=== PATIENT | male | born 1945 | race Caucasian/White ===

== ENCOUNTER 2019-10-09 13:14 | Observation (INO) | payer MEDICARE, OTHER ==
--- NOTE | 2019-10-09 13:20 | ER Document Report ---
ED Medical Screen (RME) - General Chief Complaint: S/S of Possible Stroke Stated Complaint: POSSIBLE STROKE Time Seen by Provider: 10/09/19 13:18 Mode of Arrival: Ambulatory Information source: Patient Notes: Patient is a 74-year-old male presented to the emergency department with concern for possible stroke. Patient's drove him here. Patient states that he had an episode of left-sided facial drooping at home approximately 30 minutes prior to arrival to the emergency department. He states his called EMS who came to the house and checked him out and advised that he come to the emergency department. Patient currently states all symptoms have resolved. Patient alert, oriented, answering all questions appropriately with no neurological deficits noted. I have greeted and performed a rapid initial assessment of this patient. A comprehensive ED assessment and evaluation of the patient, analysis of test results and completion of the medical decision making process will be conducted by additional ED providers. I have specifically instructed the patient or family members with the patient to immediately return to any nursing staff should anything change in the patient's condition or with their chief complaint. This medical record was dictated with voice recognizing software. There may be grammatical, syntax errors that are unintended.
--- NOTE | 2019-10-09 13:44 | RADIOLOGY REPORT (SQ) ---
EXAM DESCRIPTION: CHEST SINGLE VIEW COMPLETED DATE/TIME: 10/09/2019 1:26 pm REASON FOR STUDY: FACIAL DROOP COMPARISON: None. EXAM PARAMETERS: NUMBER OF VIEWS: One view. TECHNIQUE: Single frontal radiographic view of the chest acquired. RADIATION DOSE: NA LIMITATIONS: None. FINDINGS: LUNGS AND PLEURA: Os extensive basilar predominant course reticulonodular interstitial opa cities. No dense consolidation. No pleural effusion or pneumothorax. MEDIASTINUM AND HILAR STRUCTURES: No masses. Contour normal. HEART AND VASCULAR STRUCTURES: Normal heart size. Aortic atherosclerosis. BONES: No acute findings. HARDWARE: None in the chest. OTHER: No other significant finding. IMPRESSION: Diffuse bilateral reticulonodular interstitial opacities suggestive of a chronic interst itial lung disease. Superimposed process is not excluded. Chest CT could be considered for further characterization. TECHNICAL DOCUMENTATION: JOB ID: [id number] [employer]- All Rights Reserved Reading location - IP/workstation name: [email or web address]
--- NOTE | 2019-10-09 13:49 | RADIOLOGY REPORT (SQ) ---
EXAM DESCRIPTION: CT HEAD WITHOUT COMPLETED DATE/TIME: 10/09/2019 1:36 pm REASON FOR STUDY: FACIAL DROOP COMPARISON: None. TECHNIQUE: Axial images acquired through the brain without intravenous contrast. Images reviewed wi th bone, brain and subdural windows. Additional sagittal and coronal reconstructions were generated. Images stored on PACS. All CT scanners at this facility use dose modulation, iterative reconstruction, and/or weight based d osing when appropriate to reduce radiation dose to as low as reasonably achievable (ALARA). [facility]: Dose Right [facility]: CareDose [facility]: Dose Right [facility]: Teradose 4D [facility]: [employer] Technologies RADIATION DOSE: CT Rad equipment meets quality standard of care and radiation dose reduction techniq ues were employed. CTDIvol: 53.2 mGy. DLP: 1097 mGy-cm. mGy. LIMITATIONS: None. FINDINGS: There is diffuse, age-appropriate cerebral and cerebellar volume loss. The caliber the ve ntricles is concordant with the degree of sulcation. There is no acute intracranial hemorrhage, vasc ular territorial infarct, extra-axial fluid collection, mass effect or midline shift. There is no ef facement of the cerebral sulci or basal subarachnoid cisterns. The overton-white matter differentiation is preserved. The orbits and globes are intact. The paranasal sinuses are clear. There is no fracture of the calv arium. IMPRESSION: No acute intracranial abnormality. If there is persistent concern for an acute CVA rimma elation with MRI is recommended. EVIDENCE OF ACUTE STROKE: NO. COMMENT: Quality ID # [id number]: Final reports with documentation of one or more dose reduction techniques (e.g., Automated exposure control, adjustment of the mA and/or kV according to patient size, use of iterative reconstruction technique) TECHNICAL DOCUMENTATION: JOB ID: [id number] [employer]- All Rights Reserved Reading location - IP/workstation name: [email or web address]
[2019-10-09] MEDS ORDERED: ASPIRIN 325 MG TABLET PO ONE (14:14)
[2019-10-09 14:27] LABS: INTERNATIONAL RATION (INR) 1.13; PROTHROMBIN TIME 14.5 SEC (11.4-15.4)
[2019-10-09 14:28] LABS: ABSOLUTE BASOPHILS # (AUTO) 0.1 10^3/uL (0.0-0.2); ABSOLUTE EOSINOPHILS # (AUTO) 0.4 10^3/uL (0.0-0.6); ABSOLUTE LYMPHOCYTES (AUTO) 2.8 10^3/uL (0.5-4.7); ABSOLUTE MONOCYTES (AUTO) 0.7 10^3/uL (0.1-1.4); ABSOLUTE NEUT (AUTO) 3.8 10^3/uL (1.7-8.2); EOSINOPHILS % (AUTO) 4.9 % (0-6); HEMATOCRIT 50.9 % (37.9-51.0); HEMOGLOBIN 17.1 g/dL (13.5-17.0); LYMPHOCYTES % (AUTO) 35.8 % (13-45); MEAN CORPUSCULAR HEMOGLOBIN 31.3 pg (27.0-33.4); MEAN CORPUSCULAR HGB CONC 33.6 g/dL (32.0-36.0); MEAN CORPUSCULAR VOLUME 93 fl (80-97); MONOCYTES % (AUTO) 9.4 % (3-13); PLATELET COUNT 208 10^3/uL (150-450); RED BLOOD COUNT 5.47 10^6/uL (4.35-5.55); SEGMENTED NEUTROPHILS % (AUTO) 48.9 % (42-78); TOTAL CELLS COUNTED % (AUTO) 100 %; WHITE BLOOD COUNT 7.8 10^3/uL (4.0-10.5)
[2019-10-09 14:45] LABS: ALBUMIN 4.1 g/dL (3.5-5.0); ALKALINE PHOSPHATASE 86 U/L (38-126); ANION GAP 10 (5-19); ASPARTATE AMINO TRANSFERASE 23 U/L (17-59); BILIRUBIN,DIRECT 0.2 mg/dL (0.0-0.4); BILIRUBIN,TOTAL 0.9 mg/dL (0.2-1.3); BLOOD UREA NITROGEN 19 mg/dL (7-20); CALCIUM 8.8 mg/dL (8.4-10.2); CARBON DIOXIDE 26 mmol/L (22-30); CHLORIDE 105 mmol/L (98-107); GLUCOSE 85 mg/dL (75-110); POTASSIUM 4.8 mmol/L (3.6-5.0); TOTAL PROTEIN 7.6 g/dL (6.3-8.2)
--- NOTE | 2019-10-09 15:05 | EKG REPORT ---
SEVERITY:- ABNORMAL ECG - SINUS RHYTHM NONSPECIFIC INTRAVENTRICULAR CONDUCTION DELAY : Confirmed by: Brittny Alicea MD 09-Oct-2019 15:05:00
--- NOTE | 2019-10-09 16:16 | ER Document Report ---
ED Alteplase Inc/Exc Criteria - Date/Time patient last known well: Date/Time: 1434 - Inclusion Criteria: 1: Patient presented to ED within 3 hours of acute ischemic stroke symptom onset? -: Yes 2: Did baseline CT exclude intracranial hemorrhage and/or other risk factors? -: Yes 3: Is the age of the patient 18 years of age or greater? -: Yes : If any of the above questions are answered "NO" then stop, patient is not a candidate for Alteplase, : If all of the above questions are answered "YES" then continue with Exclusion Criteria. - Exclusion Criteria: 1: Is there evidence of intracranial hemorrhage on baseline CT? -: No 2: Is there suspicion of subarachnoid hemorrhage (even if CT negative)? -: No 3: Is there a history of serious head trauma, recent previous stroke or TN within 3 months? -: No 4: Does the patient have a clinical presentation consistent with TN or post-TN pericarditis? -: No 5: Is there history of intracranial hemorrhage? -: No 6: On repeated measurement is Systolic BP greater than 185mmHg or Diastolic BP greater that 110 mmHg and is aggressive treatment needed to reduce blood pressure to these limits (e.g. constant infusion of an anti-hypertensive)? -: No 7: Did the patient awake with stroke symptoms? -: No 8: Has the patient had a lumbar puncture or an arterial puncture at a non- compressile site within 7 days? -: No 9: With in the last 14 days did the patient have surgery or major trauma? -: No 10: Is the patient or less than 2 weeks? -: No 11: Was there any active bleeding or acute trauma? -: No 12: Does the patient have intracranial neoplasm, arteriovenous malformation or aneurysm? 13: Does the patient have abnormal glucose (less than 50 or greater than 400mg/dl)? Record glucose in Comment. -: No 14: Patient has rapidly improving symptoms at the time Alteplase is to be Administered. -: Yes 15: Does the patient have any risks for bleeding, including but not limited to: a.: Current use of Coumadin with PT greater than 15 seconds or INR greater than 1.7. b.: Current use of Pradaxa (Dabigatran). c.: Heparin administereed within the past 48 hours and PTT elevated. d.: Platelet count less than 100,000/mm. e.: Major surgery or serious trauma within 14 days. f.: Gastrointestinal or gynecological urinary bleeding within 14 days. g.: Myocardial Infarction (TN) within 3 months. -: No : If the answer to any of the above questions is "YES" then stop, the patient is not a candidate for Alteplase. : If the answer to all of the above questions is "NO" then the patient may be eligible for the Administration of Alteplase. : If the patient is noted to have seizure activity at onset of Stroke symptoms; Consult Neurologist for further evaluation. - The patient is: -: Included and is eligible to receive Alteplase. *Initiate bed placement at higher level of care* --: No Reviewed risks & benefits of thrombolytic therapy: I have reviewed the risks and benefits of thrombolytic therapy with the patient and/or his/her family. Yes -: Excluded and not eligible to receive Alteplase for the above exclusions. --: Yes - Patient's symptoms only lasted approximately 20 seconds and are gone -: Excluded and not eligible to receive Alteplase for other reasons (specify in comments): - Diagnosis of TIA: -: Patient presented with transient symptoms that are now resolved and no other neurologic findings are currently present. List symptoms in comments. -: Yes -: Patient is NOT a candidate for tPA. -: Yes -: ____(put name in comment) has been consulted for admission and continued evaluation of risk factor assessment. Comment: prem
--- NOTE | 2019-10-09 16:17 | ER Document Report ---
ED NIH Stroke Scale - NIH Stroke Scale When completed:: Before Alteplase *: 1. NIH scale should be completed with appropriate accompanying assessment tools. *: 2. The NIH should reflect what the patient is capable of doing and should not be coached by the clinician. 1a. Level of Consciousness: 0=Alert;keenly responsive -: 1=Drowsy -: 2=Obtunded -: 3=Coma/unresponsive or reflex to noxious stimuli. 1a. Responses: 0 1b. Orientation Questions: a. What month is it? -: b. How old are you? -: 0=Answers both questions correctly. -: 1=Answers one question correctly or patient is intubated or has orotracheal trauma. -: 2=Answers neither question correctly. 1b. Responses: 0 1c. Response to commands: a. Open and close eyes? -: b. 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 -: Credit is given despite weakness. Demonstration of task is permitted. Substitute command if hands cannot be used. -: 0=Performs both tasks correctly -: 1=Performs one task correctly -: 2=Performs neither task correctly 1c. Responses: 0 2. Gaze: Establish eye contact and instruct patient to "Follow my finger" -: 0=Normal -: 1=Partial gaze palsy. Gaze is abnormal in one or both eyes, but where forced deviation or total gaze paresis is not present. -: 2=Forced deviation or total gaze paresis. 2. Responses: 0 3. Visual Duenas: Sees fingers in all four quadrants. -: 0=No visual loss. -: 1=Partial hemianopsia. -: 2=Complete hemianopsia. -: 3=Bilateral hemianopsia (including Cortical blindness) 3. Responses: 0 4. Facial Movement: Instruct patient to: -: a. Show me your teeth -: b. Raise your eyebrows -: c. Close your eyes -: d. Smile -: 0=Normal symmetrical movement -: 1=Minor paralysis (flattened nasolabial fold, asymmetry on smiling). -: 2=Partial paralysis (total or near total paralysis of lower face). -: 3=Complete paralysis of upper and lower face 4. Responses: 0 5. Motor functions (left arm): Alternate sides and extend each arm with palms down (90 degrees if sitting or 45 degrees for supine). -: 0=No drift;limb holds for full 10 seconds. -: 1=Drift; limb holds but drifts down before full 10 seconds, but does not hit bed. -: 2=Some effort against gravity; limb cannot get to or maintain position. -: 3=No effort against gravity; limb falls. -: 4=No movement. -: UN=Amputation, joint fusion, explain in comments. 5. Responses (left arm): 0 5. Motor Functions (right arm): Alternate sides and extend each arm with palms down (90 degrees if sitting or 45 degrees for supine). -: 0=No drift;limb holds for full 10 seconds. -: 1=Drift; limb holds but drifts down before full 10 seconds, but does not hit bed. -: 2=Some effort against gravity; limb cannot get to or maintain position. -: 3=No effort against gravity; limb falls. -: 4=No movement. -: UN=Amputation, joint fusion, explain in comments. 5. Responses (right arm): 0 6. Motor Functions (left leg): With patient lying supine, alternate sides and extend each leg (30 degrees always while supine). -: 0=No drift, leg holds position for full 5 seconds -: 1=Drift; leg falls before full 5 seconds but does not hit bed. -: 2=Some effort against gravity, leg falls to bed but some effort against gravity. -: 3=No effort against gravity, leg falls to bed immediately. -: 4=No movement. -: UN=Amputation, joint fusion; explain in comments. 6. Responses (left leg): 0 6. Motor Functions (right leg): With patient lying supine, alternate sides and extend each leg (30 degrees always while supine). -: 0=No drift, leg holds position for full 5 seconds -: 1=Drift; leg falls before full 5 seconds but does not hit bed. -: 2=Some effort against gravity, leg falls to bed but some effort against gravity. -: 3=No effort against gravity, leg falls to bed immediately. -: 4=No movement. -: UN=Amputation, joint fusion; explain in comments. 6. Responses (right leg): 0 7. Limb Ataxia: With eyes open instruct patient to: -: a. "Touch your finger to your nose". -: b. "Touch your heel to your sanchez" -: 0=Absent -: 1=Present in one limb. -: 2=Present in two limbs. -: UN=Amputation or joint fusion; explain in comments. 7. Responses: 0 8. Sensory: Test sensation using pinprick or noxious stimuli. Test as many body parts as possible. -: 0=Normal;no sensory loss -: 1=Mile to moderate sensory loss (patient feels pin prick but is less sharp on affected side). -: 2=Severe or total sensory loss. 8. Responses: 0 9. Best Language: Instruct patient to: -: a. "Describe what you see in this picture." -: b. "Name the items in this picture." -: c. "Read these sentences." -: 0=No aphasia, normal -: 1=Mild to moderate aphasia. -: 2=Severe aphasia -: 3=Mute, global aphasia, no usable speech or auditory comprehension. 9. Responses: 0 10. Articulation, Dysarthia: Instruct patient to: -: "Read these words" or "Repeat these words" -: 0=Normal -: 1=Mild to moderate; patient may slur some words but can be understood without difficulty. -: 2=Severe; patients speech so slurred as to be unintelligible in the absence of dysphasia. -: UN=Intubated or other physical barrier, explain in comments. 10. Responses: 0 11. Extinction or inattention: 0=No abnormality -: 1= Visual, tactile, auditory, spatial, or personal inattention or extinction to bilateral simulation in one or the sensory modalities. -: 2=Profound radha-inattention or radha-inattention to more than one modality; does not recognize own hand. 11. Responses: 0 Total Score: 0
--- NOTE | 2019-10-09 16:22 | ER Document Report ---
ED Neuro Symptoms/Deficit - General Chief Complaint: S/S of Possible Stroke Stated Complaint: POSSIBLE STROKE Time Seen by Provider: 10/09/19 13:15 Mode of Arrival: Ambulatory Information source: Patient, Relative - HPI Notes: Patient presents after having trouble speaking. Patient states he does not remember having trouble speaking. However his states that he had about 12/20 period where he was trying to talk but it was unintelligible. She also states that she felt his left shoulder was slumping and that the left side of his face was drooping. He states he is now back to normal. Patient states that he feels fine and back to normal. No trouble swallowing today. No trouble with vision today. No trouble with gait. No trouble with coordination otherwise. Patient states that they were in the car all day and driving here on vacation. Patient symptoms lasted approximate 20 seconds. There is no radiation of the symptoms. Nothing made them better or worse. They were moderate. - Related Data Allergies/Adverse Reactions: No Known Allergies Allergy (Unverified 10/09/19 14:09) Past Medical History - General Information source: Patient - Social History Smoking Status: Never Smoker Chew tobacco use (# tins/day): No Frequency of alcohol use: Occasional Drug Abuse: None Family History: Reviewed & Not Pertinent Patient has suicidal ideation: No Patient has homicidal ideation: No Review of Systems - Review of Systems Constitutional: denies: Chills, Fever Cardiovascular: denies: Chest pain, Palpitations Respiratory: denies: Cough, Short of breath Gastrointestinal: denies: Abdominal pain -: Yes All other systems reviewed and negative Physical Exam - Vital signs Vitals: Temp BP Pulse Ox 97.9 F 138/89 H 85 L 10/09/19 13:36 10/09/19 13:36 10/09/19 13:36 Interpretation: Normal - General General appearance: Appears well, Alert - HEENT Head: Normocephalic, Atraumatic Eyes: Normal Pupils: PERRL - Respiratory Respiratory status: No respiratory distress Chest status: Nontender Breath sounds: Normal Chest palpation: Normal - Cardiovascular Rhythm: Regular Heart sounds: Normal auscultation Murmur: No - Abdominal Inspection: Normal Distension: No distension Bowel sounds: Normal Tenderness: Nontender Organomegaly: No organomegaly - Back Back: Normal, Nontender - Extremities General upper extremity: Normal inspection, Nontender, Normal color, Normal ROM, Normal temperature General lower extremity: Normal inspection, Nontender, Normal color, Normal ROM, Normal temperature, Normal weight bearing. No: Tanya's sign - Neurological Neuro grossly intact: Yes Cognition: Normal Orientation: AAOx4 Anurag Coma Scale Eye Opening: Spontaneous Anurag Coma Scale Verbal: Oriented [place] Coma Scale Motor: Obeys Commands [place] Coma Scale Total: 15 Speech: Normal Cranial nerves: Normal. No: Facial palsy, Gaze palsy, Tongue deviation Cerebellar coordination: Normal. 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 No: Pronator drift Sensory: Normal - Psychological Associated symptoms: Normal affect, Normal mood - Skin Skin Temperature: Warm Skin Moisture: Dry Skin Color: Normal Course - Re-evaluation Re-evalutation: 10/09/19 16:19 Patient presents with a history of TIA-like symptoms. He has no symptoms upon arrival here with a normal neurological exam. He is not a candidate for TPA due to rapidly resolving symptoms. Patient's head CT is unremarkable. He does have alpha-1 antitrypsin disorder which has been linked by certain genotypes to an increased stroke risk. He has no other significant history of vascular pathology. He does have EKG changes but there is no old EKG to compare to. He denies any previous history of cardiac pathology. He does have significant ST depression and a wide QRS at 140. It seems most prudent to have the patient admitted for further exploration of abnormal EKG as well as further work-up for vascular pathology that might have caused the TIA-like symptoms. - Vital Signs Vital signs: Temp Pulse Resp BP Pulse Ox 97.9 F 63 20 130/85 H 92 10/09/19 13:36 10/09/19 13:42 10/09/19 15:01 10/09/19 15:01 10/09/19 15:01 - Laboratory Result Diagrams: 10/09/19 13:45 10/09/19 13:45 Laboratory results interpreted by me: 10/09/19 13:45 Hgb 17.1 H RDW 15.0 H - Diagnostic Test Radiology reviewed: Image reviewed, Reports reviewed - EKG Interpretation by Me EKG shows normal: Sinus rhythm Rate: Bradycardia - 57 Rhythm: NSR [place]/QRS: IVCD Discharge - Discharge Clinical Impression: TIA (transient ischemic attack), ST segment changes on electrocardiogram Condition: Stable Disposition: ADMITTED INPATIENT Admitting Provider: Marlene (Hospitalist) Unit Admitted: Telemetry
--- NOTE | 2019-10-09 17:06 | PDOC H&P ---
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 Patient and report that he has been apparently fine until her on 12:30 PM today when he went out to get back from his car and after he came into the house, he was noted to have slurred speech and developed acute left-sided weakness. says that this only lasted for 10 seconds. Patient reports that he was unaware that it happened. He immediately returned to his baseline without any deficit, slurred speech or weakness. He denies any other acute symptoms. Denies chest pain or shortness of breath. Social History Smoking Status: Never Smoker Electronic Cigarette use?: No Family History Family History: Reviewed & Not Pertinent Parental Family History Reviewed: Yes - No premature CAD, dad from emphysema Children Family History Reviewed: No Sibling(s) Family History Reviewed.: No Medication/Allergy Allergies/Adverse Reactions: No Known Allergies Allergy (Unverified 10/09/19 14:09) Review of Systems All systems: reviewed and no additional remarkable complaints except as stated - As mentioned in HPI Physical Exam Vital Signs: Temp Pulse Resp BP Pulse Ox 97.9 F 63 22 H 130/80 H 83 L 10/09/19 13:36 10/09/19 13:42 10/09/19 16:07 10/09/19 15:45 10/09/19 16:07 Intake & Output 10/08/19 10/09/19 10/10/19 06:59 06:59 06:59 Weight 190 lb General appearance: PRESENT: no acute distress, well-developed, well-nourished Head exam: PRESENT: atraumatic, normocephalic Eye exam: PRESENT: conjunctiva pink, EOMI, PERRLA. ABSENT: scleral icterus Ear exam: PRESENT: normal external ear exam Mouth exam: PRESENT: moist, tongue midline Neck exam: ABSENT: carotid bruit, JVD, lymphadenopathy, thyromegaly Respiratory exam: PRESENT: clear to auscultation amol. ABSENT: rales, rhonchi, wheezes Cardiovascular exam: PRESENT: RRR. ABSENT: diastolic murmur, rubs, systolic murmur Pulses: PRESENT: normal dorsalis pedis pul GI/Abdominal exam: PRESENT: normal bowel sounds, soft. ABSENT: distended, guarding, mass, organolmegaly, rebound, tenderness Rectal exam: PRESENT: deferred Extremities exam: PRESENT: full ROM. ABSENT: calf tenderness, clubbing, pedal edema Neurological exam: PRESENT: alert, awake, oriented to person, oriented to place, oriented to time, oriented to situation, CN II-XII grossly intact. ABSENT: motor sensory deficit Results Laboratory Results: 10/09/19 13:45 10/09/19 13:45 10/09/19 10/09/19 13:45 13:45 WBC 7.8 RBC 5.47 Hgb 17.1 H Hct 50.9 MCV 93 MCH 31.3 MCHC 33.6 RDW 15.0 H Plt Count 208 Seg Neutrophils % 48.9 Sodium 141.3 Potassium 4.8 Chloride 105 Carbon Dioxide 26 Anion Gap 10 BUN 19 Creatinine 1.11 Est GFR ( Amer) > 60 Glucose 85 Calcium 8.8 Total Bilirubin 0.9 AST 23 Alkaline Phosphatase 86 Total Protein 7.6 Albumin 4.1 10/09/19 10/09/19 13:45 13:45 Creatine Kinase Cancelled CK-MB (CK-2) Cancelled Troponin I 0.019 Impressions: Chest X-Ray 10/09/19 13:19 IMPRESSION: Diffuse bilateral reticulonodular interstitial opacities suggestive of a chronic interstitial lung disease. Superimposed process is not excluded. Chest CT could be considered for further characterization. Head CT 10/09/19 13:19 IMPRESSION: No acute intracranial abnormality. If there is persistent concern for an acute CVA correlation with MRI is recommended. EVIDENCE OF ACUTE STROKE: NO. Assessment and Plan - Diagnosis (1) TIA (transient ischemic attack) Is this a current diagnosis for this admission?: Yes Plan: Patient had a transient slurred speech and acute left-sided weakness. Neurologic examination is completely normal upon encounter. CT of the head was unremarkable. Will admit for TIA work-up. Will order a carotid Doppler and will also check a lipid panel. Telemetry overnight. (2) ST segment changes on electrocardiogram Is this a current diagnosis for this admission?: Yes Plan: He denies chest pain or shortness of breath. Will request records from his PCP in [place] to compare from previous EKGs. (3) Interstitial lung disease Is this a current diagnosis for this admission?: Yes Plan: He was following up with a search coordinator in [place] regarding his chronic lung disease related to his alpha-1 antitrypsin deficiency. He is not on home O2. (4) [id number] deficiency Is this a current diagnosis for this admission?: Yes - Time Time Spent with patient: 25-34 minutes
--- NOTE | 2019-10-09 17:18 | ADVANCED CARE ---
- Diagnosis (1) TIA (transient ischemic attack) Diagnosis Current: Yes (2) Wchbw-2-yffytmmvtho deficiency Diagnosis Current: Yes (3) Interstitial lung disease Diagnosis Current: Yes (4) ST segment changes on electrocardiogram Diagnosis Current: Yes Resuscitation Status: Full Code Discussion: Discussed with patient and on bedside. Patient says that he wants us to attempt resuscitation but is specific about only attempting it once. He says that he does not want to be subjected to multiple resuscitation attempts. He says that he also does not want to be on long-term ventilation. He says that his , Melody Bernard (same name with patient) is his surrogate medical decision maker.
[2019-10-09 17:50] LABS: CHOLESTEROL 127.99 mg/dL (0-200); TRIGLYCERIDES 124 mg/dL (<150)
[2019-10-09 18:01] LABS: DIRECT LDL 59 mg/dL (<100)
[2019-10-09] MEDS ORDERED: INFLUENZA QUAD (6MOS+) 2019-20 VAC 0.5 ML SYR IM ONE (18:52)
[2019-10-09] MEDS: HEPARIN SOD (PORCINE) 5,000 UNIT/ML 1 ML VIAL SUBCUT SCH (21:51)
[2019-10-09] MEDS ORDERED: CIPROFLOXACIN HCL 0.3% OPH SOLN 2.5 ML OU SCH (22:00)
[2019-10-09] MEDS ORDERED: ATORVASTATIN CALCIUM 40 MG TABLET PO SCH (22:00)
--- NOTE | 2019-10-10 01:21 | RADIOLOGY REPORT (SQ) ---
EXAM DESCRIPTION: [facility]Lex: US CAROTID DOPPLER BILATERAL CLINICAL HISTORY: 74 years Male; TIA TECHNIQUE: Grayscale and Doppler (color and pulse) ultrasound of bilateral carotid arteries and the vertebral arteries was performed. Stenosis assessment based on Carotid Artery Stenosis: Posada-Scale and Doppler US DiagnosisSociety of Radiologists in Ultrasound Consensus Conference; Radiology, Sep 2003, Vol. 229:340-346 COMPARISON: None. FINDINGS: All velocities in cm/sec. Right carotid: Morphology: No calcific plaque ICA velocities: Proximal 50/11, distal 74/24 (Normal < 124/40) CCA PSV: Proximal 97, distal 85 ICA/CCA PSV ratio: 0.9 (Normal < 2.0) ECA: Patent, PSV 67 Left carotid: Morphology: No calcific plaque. ICA velocities: Proximal 61/13, distal 63/20 (Normal < 124/40) CCA PSV: Proximal 107, distal 79 ICA/CCA PSV ratio: 0.8 (Normal < 2.0) ECA: Patent, PSV 79 Right vertebral: Antegrade flow Left vertebral: Antegrade flow IMPRESSION: 1. No significant stenosis of the cervical carotid arteries. 2. Normal antegrade flow in both vertebral arteries
[2019-10-10] MEDS: HEPARIN SOD (PORCINE) 5,000 UNIT/ML 1 ML VIAL SUBCUT SCH (05:18)
[2019-10-10 07:39] VITALS: BP 114/69
[2019-10-10] MEDS ORDERED: ASPIRIN 81 MG TABLET, ENT COATED PO SCH (10:00)
--- NOTE | 2019-10-10 12:10 | PDOC DISCHARGE SUMMARY ---
Impression - Admit/DC Date/PCP Admission Date/Primary Care Provider: 10/09/19 16:32 Discharge Date: 10/10/19 - Assessment Summary: This is a 74-year-old male patient with a past medical history of alpha-1 antitrypsin deficiency with chronic interstitial lung disease who had acute onset symptoms of TIA including slurred speech and acute left-sided weakness. By the time he presented to the emergency department it had resolved. - Additional Information Resuscitation Status: Full Code Discharge Diet: Cardiac Discharge Activity: Activity As Tolerated Referrals: DEDRICK NIXON MD [ACTIVE STAFF] - 10/25/19 2:15 pm (New patient appointment.) Prescriptions: Atorvastatin Calcium [Lipitor 20 mg Tablet] 20 mg PO QHS #30 tablet Home Medications: Albuterol Sulfate [Proair HFA Inhalation Aerosol 8.5 gm MDI] 2 puff IH QIDP PRN 10/09/19 Tiotropium [place] [Spiriva Respimat] 1 puff IH DAILY 10/09/19 Aspirin [Ecotrin 81 mg EC Tablet] 81 mg PO DAILY tabec 10/10/19 Atorvastatin Calcium [Lipitor 20 mg Tablet] 20 mg PO QHS #30 tablet 10/10/19 History of Present Illiness History of Present Illness: LUAN MOHAMUD is a 74 year old male on an extended visit from [place] who just arrived in the area 2 days ago. His past medical history is significant for alpha-1 antitrypsin deficiency with associated chronic interstitial lung disease. The patient had been in his normal state of health until approximately 12:30 PM on the day of admission. The patient went out to his car briefly and when he came back in the house he had slurred speech and acute left-sided weakness. The patient and his agree that the symptoms were gone but then a minute. The patient's reports that the patient was unaware of the event altogether. He returned to baseline but they presented to the emergency department for evaluation. At the time of admission he had no acute focal neurologic symptoms, no chest pain, no shortness of breath and was referred to the hospital service for admission. Hospital Course Hospital Course: The patient had an unremarkable hospital course. Further diagnostic imaging and blood work were unremarkable. His neurologic symptoms had resolved prior to arriving at the emergency department. His blood pressure and lipids were well controlled. He will be discharged and a follow-up appointment has been set up with a local physician since he is visiting from [place]. In addition, he does use the [place] [facility] and I suggested that they try to make arrangements for follow-up especially considering new medication. Physical Exam Vital Signs: Temp Pulse Resp BP Pulse Ox 98.0 F 51 L 18 114/69 96 10/10/19 07:35 10/10/19 11:00 10/10/19 11:00 10/10/19 11:00 10/10/19 11:00 Intake & Output 10/09/19 10/10/19 10/11/19 06:59 06:59 06:59 Intake Total 600 Output Total 3 Balance 597 Weight 84.8 kg General appearance: PRESENT: no acute distress, cooperative, well-developed Head exam: PRESENT: atraumatic, normocephalic Eye exam: PRESENT: conjunctiva pink. ABSENT: scleral icterus Ear exam: PRESENT: normal external ear exam. ABSENT: bleeding, drainage Respiratory exam: PRESENT: rales - fine rales bilaterally, stridor, unlabored. ABSENT: rhonchi, tachypnea, wheezes Cardiovascular exam: PRESENT: RRR, +S1, +S2 GI/Abdominal exam: PRESENT: normal bowel sounds, soft. ABSENT: distended, tenderness Rectal exam: PRESENT: deferred Extremities exam: PRESENT: full ROM. ABSENT: joint swelling, pedal edema Musculoskeletal exam: PRESENT: normal inspection. ABSENT: deformity Neurological exam: PRESENT: alert, awake, oriented to person, oriented to place, oriented to time, oriented to situation, CN II-XII grossly intact. ABSENT: motor sensory deficit Psychiatric exam: PRESENT: appropriate affect, normal mood. ABSENT: agitated, anxious Focused psych exam: ABSENT: delusional, restlessness Skin exam: PRESENT: dry, warm. ABSENT: rash Results Laboratory Results: WBC 7.8 10^3/uL (4.0-10.5) 10/09/19 13:45 RBC 5.47 10^6/uL (4.35-5.55) 10/09/19 13:45 Hgb 17.1 g/dL (13.5-17.0) H 10/09/19 13:45 Hct 50.9 % (37.9-51.0) 10/09/19 13:45 MCV 93 fl (80-97) 10/09/19 13:45 MCH 31.3 pg (27.0-33.4) 10/09/19 13:45 MCHC 33.6 g/dL (32.0-36.0) 10/09/19 13:45 RDW 15.0 % (11.5-14.0) H 10/09/19 13:45 Plt Count 208 10^3/uL (150-450) 10/09/19 13:45 Lymph % (Auto) 35.8 % (13-45) 10/09/19 13:45 [place] % (Auto) 9.4 % (3-13) 10/09/19 13:45 Eos % (Auto) 4.9 % (0-6) 10/09/19 13:45 Baso % (Auto) 1.0 % (0-2) 10/09/19 13:45 Absolute Neuts (auto) 3.8 10^3/uL (1.7-8.2) 10/09/19 13:45 Absolute Lymphs (auto) 2.8 10^3/uL (0.5-4.7) 10/09/19 13:45 Absolute Monos (auto) 0.7 10^3/uL (0.1-1.4) 10/09/19 13:45 Absolute Eos (auto) 0.4 10^3/uL (0.0-0.6) 10/09/19 13:45 Absolute Basos (auto) 0.1 10^3/uL (0.0-0.2) 10/09/19 13:45 Seg Neutrophils % 48.9 % (42-78) 10/09/19 13:45 PT 14.5 SEC (11.4-15.4) 10/09/19 13:45 INR 1.13 10/09/19 13:45 APTT Cancelled 10/09/19 13:45 Sodium 141.3 mmol/L (137-145) 10/09/19 13:45 Potassium 4.8 mmol/L (3.6-5.0) 10/09/19 13:45 Chloride 105 mmol/L (98-107) 10/09/19 13:45 Carbon Dioxide 26 mmol/L (22-30) 10/09/19 13:45 Anion Gap 10 (5-19) 10/09/19 13:45 BUN 19 mg/dL (7-20) 10/09/19 13:45 Creatinine 1.11 mg/dL (0.52-1.25) 10/09/19 13:45 Est GFR ( Amer) > 60 (>60) 10/09/19 13:45 Est GFR (MDRD) Non-Af > 60 (>60) 10/09/19 13:45 Glucose 85 mg/dL (75-110) 10/09/19 13:45 Calcium 8.8 mg/dL (8.4-10.2) 10/09/19 13:45 Total Bilirubin 0.9 mg/dL (0.2-1.3) 10/09/19 13:45 Direct Bilirubin 0.2 mg/dL (0.0-0.4) 10/09/19 13:45 Neonat Total Bilirubin Not Reportable 10/09/19 13:45 Neonat Direct Bilirubin Not Reportable 10/09/19 13:45 Neonat Indirect Bili Not Reportable 10/09/19 13:45 AST 23 U/L (17-59) 10/09/19 13:45 ALT 17 U/L (<50) 10/09/19 13:45 Alkaline Phosphatase 86 U/L (38-126) 10/09/19 13:45 Creatine Kinase Cancelled 10/09/19 13:45 CK-MB (CK-2) Cancelled 10/09/19 13:45 Troponin I 0.019 ng/mL 10/09/19 13:45 Total Protein 7.6 g/dL (6.3-8.2) 10/09/19 13:45 Albumin 4.1 g/dL (3.5-5.0) 10/09/19 13:45 Triglycerides 124 mg/dL (<150) 10/09/19 13:45 Cholesterol 127.99 mg/dL (0-200) 10/09/19 13:45 LDL Cholesterol Direct 59 mg/dL (<100) 10/09/19 13:45 VLDL Cholesterol 25.0 mg/dL (10-31) 10/09/19 13:45 HDL Cholesterol 46 mg/dL (>40) 10/09/19 13:45 10/09/19 13:45 CK-MB (CK-2) Cancelled Troponin I 0.019 Impressions: Carotid Doppler Study 10/09/19 00:00 IMPRESSION: 1. No significant stenosis of the cervical carotid arteries. 2. Normal antegrade flow in both vertebral arteries Chest X-Ray 10/09/19 13:19 IMPRESSION: Diffuse bilateral reticulonodular interstitial opacities suggestive of a chronic interstitial lung disease. Superimposed process is not excluded. Chest CT could be considered for further characterization. Head CT 10/09/19 13:19 IMPRESSION: No acute intracranial abnormality. If there is persistent concern for an acute CVA correlation with MRI is recommended. EVIDENCE OF ACUTE STROKE: NO. Plan Health Concerns: The major concern that we discussed was the possibility of recurrent TIA or stroke. He does have an abnormal EKG but we are unable to obtain records from his primary care in [place]. He was completely asymptomatic. Plan of Treatment: The patient currently is on inhaler therapy for his alpha-1 antitrypsin deficiency with pulmonary fibrosis. I explained that he should add aspirin therapy daily. I suggested 81 mg enteric-coated aspirin. His takes one half of an adult strength aspirin and asked if that would be okay. I certainly encouraged either dose. In addition the patient's lipid profile was quite good however I explained to the patient that the addition of a statin to his regimen should help decrease the progression of any atherosclerosis. This will be used in a preventive capacity as opposed to an acute treatment for hypercholesterolemia. The patient was agreeable to the treatment plan. Goals: To reduce the risk of recurrent event. He will also need to follow-up with his primary care provider in [place] when he gets home. Stroke Is this a Stroke Patient?: Yes Stroke Pt being discharged on Anti-thrombolytic therapy?: Yes Stroke Pt being discharged on Anti-coagulation therapy?: No Reason(s) for not prescribing Anti-coagulation therapy:: Not indicated Stroke Pt being discharged on Statins?: Yes Acute Heart Failure - Is this a Heart Failure Patient?: No
== END 2019-10-10 13:34 | disposition home or self-care (01) ==
LOC: ER 13:14 → INTOOBSV 16:32 → EH 16:32 → 3N 18:39
PROVIDERS: ADMIT Internal Medicine; ATTEND Internal Medicine
DX: G45.9 Transient cerebral ischemic attack, unspecified (principal); R94.31 Abnormal electrocardiogram [ECG] [EKG]; E88.01 Alpha-1-antitrypsin deficiency; J84.89 Other specified interstitial pulmonary diseases; Z23 Encounter for immunization
CPT/HCPCS: 93005; 99285; 36415; 85025; 85610; 80053; 84484; 80061; 93880; 71045; 70450; 90686; 93010; G0378 ×3; G0008; A9270 ×2; J1644 ×2; 90471; J3490

== ENCOUNTER → 2020-01-09 | Outpatient (CLI) | payer MEDICARE, OTHER ==
--- NOTE | 2020-01-09 14:14 | RADIOLOGY REPORT (SQ) ---
EXAM DESCRIPTION: CHEST PA/LATERAL COMPLETED DATE/TIME: 01/09/2020 1:55 pm REASON FOR STUDY: [id number] DEFICIENCY COMPARISON: 10/09/2019. EXAM PARAMETERS: NUMBER OF VIEWS: two views TECHNIQUE: Digital Frontal and Lateral radiographic views of the chest acquired. RADIATION DOSE: NA LIMITATIONS: none FINDINGS: LUNGS AND PLEURA: Chronic fibrotic changes. No infiltrates, masses or pneumothorax. No pl eural effusion. MEDIASTINUM AND HILAR STRUCTURES: No masses or contour abnormalities. HEART AND VASCULAR STRUCTURES: Heart normal size. No evidence for failure. BONES: No acute findings. HARDWARE: None in the chest. OTHER: No other significant finding. IMPRESSION: CHRONIC FIBROTIC CHANGES. NO ACUTE RADIOGRAPHIC FINDING IN THE CHEST. TECHNICAL DOCUMENTATION: JOB ID: [id number] 2010 [employer]- All Rights Reserved Reading location - IP/workstation name: [email or web address]
[2020-01-09 14:18] LABS: ABSOLUTE BASOPHILS # (AUTO) 0.1 10^3/uL (0.0-0.2); ABSOLUTE EOSINOPHILS # (AUTO) 0.2 10^3/uL (0.0-0.6); ABSOLUTE LYMPHOCYTES (AUTO) 2.9 10^3/uL (0.5-4.7); ABSOLUTE MONOCYTES (AUTO) 1.1 10^3/uL (0.1-1.4); ABSOLUTE NEUT (AUTO) 9.4 10^3/uL (1.7-8.2); BASOPHILS % (AUTO) 0.7 % (0-2); EOSINOPHILS % (AUTO) 1.5 % (0-6); HEMATOCRIT 45.9 % (37.9-51.0); HEMOGLOBIN 15.8 g/dL (13.5-17.0); LYMPHOCYTES % (AUTO) 21.1 % (13-45); MEAN CORPUSCULAR HEMOGLOBIN 31.8 pg (27.0-33.4); MEAN CORPUSCULAR HGB CONC 34.3 g/dL (32.0-36.0); MEAN CORPUSCULAR VOLUME 93 fl (80-97); MONOCYTES % (AUTO) 8.3 % (3-13); PLATELET COUNT 265 10^3/uL (150-450); RED BLOOD COUNT 4.96 10^6/uL (4.35-5.55); RED CELL DISTRIBUTION WIDTH 15.6 % (11.5-14.0); SEGMENTED NEUTROPHILS % (AUTO) 68.4 % (42-78); TOTAL CELLS COUNTED % (AUTO) 100 %; WHITE BLOOD COUNT 13.7 10^3/uL (4.0-10.5)
[2020-01-12 07:07] LABS: ALPHA-1-ANTITRYPSIN PHENOTYPE SZ (.)
== END ==
LOC: OD 13:35
PROVIDERS: ATTEND Internal Medicine Pulmonary Disease
DX: J20.9 Acute bronchitis, unspecified (principal); E88.01 Alpha-1-antitrypsin deficiency
CPT/HCPCS: 36415; 71046; 81332; 82103; 82104; 82784; 85025

== ENCOUNTER 2020-02-12 11:01 | Inpatient (IN) | payer MEDICARE, OTHER ==
[2020-02-12] MEDS ORDERED: ACETAMINOPHEN 325 MG TABLET PO ONE (11:33)
[2020-02-12 12:06] LABS: ABSOLUTE BASOPHILS # (AUTO) 0.1 10^3/uL (0.0-0.2); ABSOLUTE LYMPHOCYTES (AUTO) 1.7 10^3/uL (0.5-4.7); ABSOLUTE MONOCYTES (AUTO) 1.5 10^3/uL (0.1-1.4); ABSOLUTE NEUT (AUTO) 10.6 10^3/uL (1.7-8.2); BASOPHILS % (AUTO) 0.5 % (0-2); EOSINOPHILS % (AUTO) 0.4 % (0-6); HEMATOCRIT 47.4 % (37.9-51.0); LYMPHOCYTES % (AUTO) 12.2 % (13-45); MEAN CORPUSCULAR HEMOGLOBIN 30.8 pg (27.0-33.4); MEAN CORPUSCULAR HGB CONC 33.7 g/dL (32.0-36.0); MEAN CORPUSCULAR VOLUME 91 fl (80-97); MONOCYTES % (AUTO) 10.9 % (3-13); PLATELET COUNT 292 10^3/uL (150-450); RED BLOOD COUNT 5.19 10^6/uL (4.35-5.55); RED CELL DISTRIBUTION WIDTH 14.3 % (11.5-14.0); TOTAL CELLS COUNTED % (AUTO) 100 %
[2020-02-12 12:12] LABS: INTERNATIONAL RATION (INR) 1.24; PROTHROMBIN TIME 15.7 SEC (11.4-15.4)
[2020-02-12 12:19] LABS: VENOUS BLOOD BASE EXCESS 0.4 mmol/L; VENOUS BLOOD HCO3 24.7 mmol/L (20-32); VENOUS BLOOD PCO2 38.7 mmHg (35-63); VENOUS BLOOD PH 7.42 (7.30-7.42)
[2020-02-12 12:31] LABS: ALBUMIN 3.6 g/dL (3.5-5.0); ALKALINE PHOSPHATASE 154 U/L (38-126); ANION GAP 11 (5-19); ASPARTATE AMINO TRANSFERASE 28 U/L (17-59); BILIRUBIN,DIRECT 0.2 mg/dL (0.0-0.4); BILIRUBIN,TOTAL 1.7 mg/dL (0.2-1.3); BLOOD UREA NITROGEN 22 mg/dL (7-20); CALCIUM 8.4 mg/dL (8.4-10.2); CARBON DIOXIDE 21 mmol/L (22-30); CHLORIDE 100 mmol/L (98-107); GLUCOSE 112 mg/dL (75-110); POTASSIUM 4.8 mmol/L (3.6-5.0); TOTAL PROTEIN 7.4 g/dL (6.3-8.2)
--- NOTE | 2020-02-12 12:32 | ER Document Report ---
ED General - General Chief Complaint: Shortness Of Breath Stated Complaint: SHORTNESS OF BREATH Time Seen by Provider: 02/12/20 11:31 Notes: 74-year-old male sent in from Dr. [facility] pulmonary clinic for hypoxia. Patient states he was diagnosed with bronchitis 2 weeks ago, took a Z-Venkatesh and is still has not been feeling well since then. States that normally he uses oxygen at night only but for the past 2 weeks has been having to use 4 L via nasal cannula every day even during the day. At the pulmonary clinic he was found to be febrile and hypoxic, they started him on 10 L via nasal cannula at the clinic and sent him here via EMS. Patient admits to chills yesterday, shortness of breath, cough that is slightly productive of sputum. Denies chest pain, nausea, vomiting, diarrhea. TRAVEL OUTSIDE OF THE [place] IN LAST 30 DAYS: No - Related Data Allergies/Adverse Reactions: No Known Allergies Allergy (Verified 02/12/20 11:14) Past Medical History - General Information source: Patient - Social History Smoking Status: Former Smoker - Smoked only for 2 weeks, has a history of alpha- 1 antitrypsin deficiency. Chew tobacco use (# tins/day): No Frequency of alcohol use: Occasional Drug Abuse: None Family History: Reviewed & Not Pertinent, COPD - Father, Other - Mom with CHF Patient has suicidal ideation: No Patient has homicidal ideation: No - Past Medical History Cardiac Medical History: Reports: Hx Hypercholesterolemia Pulmonary Medical History: Reports: Hx Asthma, Hx COPD Psychiatric Medical History: Denies: Hx Depression Review of Systems - Review of Systems Constitutional: See HPI, Chills. denies: Diaphoresis, Weakness EENT: No symptoms reported Cardiovascular: No symptoms reported. denies: Chest pain, Palpitations, Heart racing Respiratory: See HPI, Cough, Short of breath Gastrointestinal: No symptoms reported -: Yes All other systems reviewed and negative Physical Exam - Vital signs Vitals: Pulse Ox 87 L 02/12/20 11:01 Interpretation: Hypoxic, Febrile - Notes Notes: GENERAL: Alert, interacts well. No acute distress. HEAD: Normocephalic, atraumatic EYES: Pupils equal, round and reactive to light, extraocular movements intact. ENT: Oral mucosa moist, tongue midline. NECK: Full range of motion, supple, trachea midline. LUNGS: Diffuse inspiratory rales throughout the entire lung zones, tachypneic, moderately short of breath, no wheezing. HEART: Regular rate and rhythm, no murmurs, gallops, rubs. ABDOMEN: Soft, nontender, nondistended, bowel sounds present in all 4 quadrants. EXTREMITIES: Moves all 4 extremities spontaneously, no edema, radial and dorsalis pedis pulses 2/4 bilaterally. No cyanosis. NEUROLOGICAL: Alert and oriented x3, normal speech. PSYCH: Normal mood, normal affect. SKIN: Warm, Dry, normal turgor, no rashes or lesions noted. Course - Re-evaluation Re-evalutation: 02/12/20 15:06 CBC shows leukocytosis at 14, INR slightly prolonged, venous blood gas unremarkable, CMP shows slight low sodium at 132.4, CO2 low at 21, BUN elevated at 22, lactic acid normal, troponin detectable but negative at 0.020, proBNP elevated at 1720, urinalysis does have some evidence of dehydration with specific gravity of 1.029. Flu a and B swabs are negative. 02/12/20 15:06 Chest X-Ray 02/12/20 11:33 IMPRESSION: Pulmonary fibrosis. Cannot exclude a superimposed left lower lobe pneumonia. Patient started on Rocephin and azithromycin as he is febrile and has a leukocytosis, lung sounds are concerning for pulmonary edema however similar sounds can be heard in pulmonary fibrosis. Patient does have an elevated proBNP, given Lasix IV, started on BiPAP, oxygenation has improved. Patient is actually somewhat claustrophobic and uncomfortable on the BiPAP. It has been on for over an hour. We will trial him off of the BiPAP and on 4 L via nasal cannula. If he does well I will call to discuss with the hospitalist for admission. 02/12/20 16:03 Patient is now actually 97% on 4 L via nasal cannula, does desaturate to 88% when standing up to urinate. He was able to be taken off BiPAP without difficulty when at rest. Discussed the case with on way, agrees to admit the patient to his service on telemetry care unit. - Vital Signs Vital signs: Temp Pulse Resp BP Pulse Ox 99.2 F 22 H 74/52 L 97 02/12/20 13:07 02/12/20 14:41 02/12/20 14:41 02/12/20 14:41 - Laboratory Result Diagrams: 02/12/20 10:46 02/12/20 10:46 Laboratory results interpreted by me: 02/12/20 02/12/20 02/12/20 10:46 10:46 10:46 WBC 14.0 H RDW 14.3 H Lymph % (Auto) 12.2 L Absolute Neuts (auto) 10.6 H Absolute Monos (auto) 1.5 H PT 15.7 H Sodium 132.4 L Carbon Dioxide 21 L BUN 22 H Glucose 112 H Total Bilirubin 1.7 H Alkaline Phosphatase 154 H NT-Pro-B Natriuret Pep Urine Protein Urine Urobilinogen 02/12/20 02/12/20 12:00 13:11 WBC RDW Lymph % (Auto) Absolute Neuts (auto) Absolute Monos (auto) PT Sodium Carbon Dioxide BUN Glucose Total Bilirubin Alkaline Phosphatase NT-Pro-B Natriuret Pep 1720 H Urine Protein 30 H Urine Urobilinogen 4.0 H - EKG Interpretation by Me Additional EKG results interpreted by me: 02/12/20 12:35 EKG shows sinus rhythm at a rate of 94, right bundle branch block, left posterior fascicular block, no ST segment elevations, ST segment depressions are noted in V2, V3 although this may be due to a poor baseline, T wave inversions in V2 through V4 as well as expected T wave inversions in 2, 3, aVF, most of this is unchanged from prior EKG on 10/09/2019, only new thing is the ST segment depression in V2 and V3 per my interpretation. Critical Care Note - Critical Care Note Total time excluding time spent on procedures (mins): 35 Discharge - Discharge Clinical Impression: Hypoxia, Ilgiv-2-vgaunzgjptu deficiency, Pulmonary fibrosis Left lower lobe pneumonia Qualifiers: Pneumonia type: due to unspecified organism Qualified Code(s): J18.9 - Pneumonia, unspecified organism Pulmonary edema Qualifiers: Chronicity: acute Qualified Code(s): J81.0 - Acute pulmonary edema Condition: Fair Disposition: ADMITTED INPATIENT Admitting Provider: [place] (Hospitalist) Unit Admitted: Telemetry
[2020-02-12] MEDS ORDERED: LORAZEPAM INJ 2 MG/1 ML VIAL IV ONE ×2 (12:39→13:31)
[2020-02-12 12:44] LABS: A TYPE INFLUENZA AG NEGATIVE (NEGATIVE); B INFLUENZA AG NEGATIVE (NEGATIVE)
--- NOTE | 2020-02-12 12:54 | RADIOLOGY REPORT (SQ) ---
EXAM DESCRIPTION: CHEST SINGLE VIEW COMPLETED DATE/TIME: 02/12/2020 12:13 pm REASON FOR STUDY: fever, cough, SOB COMPARISON: 01/09/2020 EXAM PARAMETERS: NUMBER OF VIEWS: One view. TECHNIQUE: Single frontal radiographic view of the chest acquired. RADIATION DOSE: NA LIMITATIONS: None. FINDINGS: LUNGS AND PLEURA: Chronic pulmonary fibrosis most prominent in the left base. There is sl ightly increased opacification in the left base compared to the earlier study. MEDIASTINUM AND HILAR STRUCTURES: No masses. Contour normal. HEART AND VASCULAR STRUCTURES: Heart normal in size. Normal vasculature. BONES: No acute findings. HARDWARE: None in the chest. OTHER: No other significant finding. IMPRESSION: Pulmonary fibrosis. Cannot exclude a superimposed left lower lobe pneumonia. TECHNICAL DOCUMENTATION: JOB ID: [id number] 2010 [employer]- All Rights Reserved Reading location - IP/workstation name: [email or web address]
[2020-02-12] MEDS ORDERED: AZITHROMYCIN INJ 500 MG VIAL IV ONE (13:30)
[2020-02-12] MEDS ORDERED: FUROSEMIDE INJ/PF 40 MG/4 ML SDV IV ONE (13:30)
[2020-02-12] MEDS ORDERED: CEFTRIAXONE 1 GM/D5W RTU 1 GM/50 ML RTUPB IV ONE (13:30)
[2020-02-12 13:31] LABS: APPEARANCE,URINE SLIGHTLY-CLOUDY; BILIRUBIN,URINE NEGATIVE (NEGATIVE); COLOR,URINE AMBER; GLUCOSE, URINE NEGATIVE (NEGATIVE); KETONES,URINE NEGATIVE (NEGATIVE); PROTEIN,URINE 30 mg/dL (NEGATIVE); URINE SPECIFIC GRAVITY 1.029
--- NOTE | 2020-02-12 15:38 | EKG REPORT ---
SEVERITY:- ABNORMAL ECG - SINUS RHYTHM RBBB AND LPFB ST DEPRESSION, CONSIDER ISCHEMIA, INF LEADS : Confirmed by: Brittny Alicea MD 12-Feb-2020 15:37:34
[2020-02-12] MEDS ORDERED: MAG HYDROX/AL HYDROX/SIMETH SUSP 30 ML UDCUP PO PRN (17:43)
[2020-02-12] MEDS ORDERED: ONDANSETRON HCL INJ/PF 4 MG/2 ML SDV IV PRN (17:43)
--- NOTE | 2020-02-12 17:56 | PDOC H&P ---
History of Present Illness Admission Date/PCP: 02/12/20 16:16 Patient complains of: sob History of Present Illness: LUAN MOHAMUD is a 74 year old male with a history of Alpha 1 antitrypsn deficiency, COPD and likely pulmonary fibrosis on 4 L nasal cannula, TIA, who presents from Dr. Sharp's office with complaints of shortness of breath. Patient went to Dr. Sharp's office today and was noted to be hypoxic with SPO2 in the 70s on 4 L. Patient was placed on 10 L nasal cannula and transferred to the ER for further evaluation. In the ER, patient was noted to be febrile at 100.6 and given Tylenol. Chest x-ray revealed chronic interstitial changes but with increased interstitial opacities in the left lower lung. Patient relocated from [place] 3 months ago. Has not had any recent travels outside the country. No known exposures to any persons with covid 19. Only known sick contact is his grandchild who he frequently picks up from the daycare. Has interacted with relatives from out of state recently. Patient states that he was started on treatment for acute bronchitis by Dr. Sharp about 2 weeks ago without any significant improvement continues to feel short of breath and experiencing cough. Endorses some chills but did not know he was febrile. Past Medical History Cardiac Medical History: Reports: Hyperlipidema Pulmonary Medical History: Reports: Asthma, Chronic Obstructive Pulmonary Disease (COPD), Other - pulmonary fibrosis Psychiatric Medical History: Denies: Depression Social History Smoking Status: Former Smoker - Smoked only for 2 weeks, has a history of alpha- 1 antitrypsin deficiency. Electronic Cigarette use?: No Frequency of Alcohol Use: Occasional Hx Recreational Drug Use: No Drugs: None Hx Prescription Drug Abuse: No - Advance Directive Resuscitation Status: Full Code Family History Family History: COPD - Father, Other - Mom with CHF Parental Family History Reviewed: Yes Children Family History Reviewed: NA Sibling(s) Family History Reviewed.: NA Medication/Allergy Home Medications: Tiotropium [place] [Spiriva Respimat] 1 puff IH DAILY 10/09/19 Aspirin [Ecotrin 81 mg EC Tablet] 81 mg PO DAILY tabec 10/10/19 Atorvastatin Calcium [Lipitor 20 mg Tablet] 20 mg PO QHS #30 tablet 10/10/19 Allergies/Adverse Reactions: No Known Allergies Allergy (Verified 02/12/20 11:14) Review of Systems Constitutional: PRESENT: chills, fever(s) Nose, Mouth, and Throat: ABSENT: mouth pain, sore throat Cardiovascular: ABSENT: chest pain, orthropnea Respiratory: PRESENT: cough, dyspnea, sputum Gastrointestinal: ABSENT: nausea, vomiting Integumentary: ABSENT: diaphoresis Neurological: ABSENT: confusion, dizziness Psychiatric: ABSENT: anxiety Endocrine: ABSENT: polyuria Hematologic/Lymphatic: ABSENT: lymphadenopathy Physical Exam Vital Signs: Temp Pulse Resp BP Pulse Ox 99.2 F 22 H 74/52 L 97 02/12/20 13:07 02/12/20 14:41 02/12/20 14:41 02/12/20 14:41 Intake & Output 02/11/20 02/12/20 02/13/20 06:59 06:59 06:59 Intake Total 50 Output Total 230 Balance -180 Weight 77.6 kg General appearance: PRESENT: no acute distress, cooperative Neck exam: ABSENT: JVD Respiratory exam: PRESENT: crackles, symmetrical. ABSENT: tachypnea, unlabored, wheezes Cardiovascular exam: PRESENT: RRR, +S1, +S2. ABSENT: tachycardia GI/Abdominal exam: PRESENT: soft. ABSENT: rigid, tenderness Extremities exam: ABSENT: calf tenderness, pedal edema Musculoskeletal exam: PRESENT: ambulatory Neurological exam: PRESENT: alert, awake, oriented to person, oriented to place, oriented to time Psychiatric exam: ABSENT: agitated, anxious Skin exam: ABSENT: cyanosis Results Laboratory Results: 02/12/20 10:46 02/12/20 10:46 02/12/20 02/12/20 02/12/20 10:46 10:46 11:54 WBC 14.0 H RBC 5.19 Hgb 16.0 Hct 47.4 MCV 91 MCH 30.8 MCHC 33.7 RDW 14.3 H Plt Count 292 Seg Neutrophils % 76.0 VBG pH 7.42 VBG pCO2 38.7 VBG HCO3 24.7 VBG Base Excess 0.4 Sodium 132.4 L Potassium 4.8 Chloride 100 Carbon Dioxide 21 L Anion Gap 11 BUN 22 H Creatinine 1.00 Est GFR ( Amer) > 60 Glucose 112 H Lactic Acid Calcium 8.4 Total Bilirubin 1.7 H AST 28 Alkaline Phosphatase 154 H Total Protein 7.4 Albumin 3.6 Urine Color Urine Appearance Urine pH Ur Specific [place] Urine Protein Urine Glucose (UA) Urine Ketones Urine Blood Urine RBC (Auto) 02/12/20 02/12/20 02/12/20 11:54 13:11 15:10 WBC RBC Hgb Hct MCV MCH MCHC RDW Plt Count Seg Neutrophils % VBG pH VBG pCO2 VBG HCO3 VBG Base Excess Sodium Potassium Chloride Carbon Dioxide Anion Gap BUN Creatinine Est GFR ( Amer) Glucose Lactic Acid 1.8 1.5 Calcium Total Bilirubin AST Alkaline Phosphatase Total Protein Albumin Urine Color NIGHAT Urine Appearance SLIGHTLY-CLOUDY Urine pH 5.0 Ur Specific [place] 1.029 Urine Protein 30 H Urine Glucose (UA) NEGATIVE Urine Ketones NEGATIVE Urine Blood NEGATIVE Urine RBC (Auto) 0 02/12/20 02/12/20 10:46 12:00 Troponin I 0.020 NT-Pro-B Natriuret Pep 1720 H Impressions: Chest X-Ray 02/12/20 11:33 IMPRESSION: Pulmonary fibrosis. Cannot exclude a superimposed left lower lobe pneumonia. Assessment and Plan - Diagnosis (1) Acute and chronic respiratory failure with hypoxia Is this a current diagnosis for this admission?: Yes Plan: At baseline patient wears 4 L nasal cannula. Initially required BiPAP machine due to hypoxia into the 70s on 4 L but now is tolerating on 4 L nasal cannula. We will monitor on supplementary oxygen as needed (2) Left lower lobe pneumonia Qualifiers: Pneumonia type: due to unspecified organism Qualified Code(s): J18.9 - Pneumonia, unspecified organism Is this a current diagnosis for this admission?: Yes Plan: Chest x-ray shows chronic interstitial changes with some increased interstitial opacification in the left lower lung. Potentially could have a pneumonia brewing amidst his chronic pulmonary fibrosis especially given his fever. Influenza negative Given his fever, respiratory symptoms, hypoxia and increased interstitial opacif ications as compared to last month, as well as possible exposure in daycare centers which he frequents, I will go ahead and test for COVID [address] patient under airborne isolation. We will admit to the 5 S. Ceftriaxone and azithromycin Blood cultures obtained Send sputum cultures (3) COPD (chronic obstructive pulmonary disease) Qualifiers: COPD type: emphysema Emphysema type: unspecified Qualified Code(s): J43.9 - Emphysema, unspecified Is this a current diagnosis for this admission?: Yes Plan: Nebs as needed. Not acutely exacerbated. Oxygen supplementation. (4) Fever Is this a current diagnosis for this admission?: Yes Plan: Plan as above (5) Pulmonary fibrosis Is this a current diagnosis for this admission?: Yes Plan: Outpatient follow-up with Dr. Sharp - Time Time Spent with patient: 25-34 minutes
[2020-02-12] MEDS: ATORVASTATIN CALCIUM 20 MG TABLET PO SCH (21:14)
[2020-02-13] MEDS ORDERED: IPRATROPIUM/ALBUTEROL 0.5-2.5 MG/3 ML AMPUL NEB SCH
[2020-02-13 06:07] LABS: ABSOLUTE BASOPHILS # (AUTO) 0.1 10^3/uL (0.0-0.2); ABSOLUTE EOSINOPHILS # (AUTO) 0.1 10^3/uL (0.0-0.6); ABSOLUTE LYMPHOCYTES (AUTO) 2.7 10^3/uL (0.5-4.7); ABSOLUTE MONOCYTES (AUTO) 1.7 10^3/uL (0.1-1.4); ABSOLUTE NEUT (AUTO) 10.8 10^3/uL (1.7-8.2); BASOPHILS % (AUTO) 0.5 % (0-2); EOSINOPHILS % (AUTO) 0.8 % (0-6); HEMATOCRIT 43.8 % (37.9-51.0); HEMOGLOBIN 14.9 g/dL (13.5-17.0); LYMPHOCYTES % (AUTO) 17.7 % (13-45); MEAN CORPUSCULAR HEMOGLOBIN 31.1 pg (27.0-33.4); MEAN CORPUSCULAR HGB CONC 33.9 g/dL (32.0-36.0); MEAN CORPUSCULAR VOLUME 92 fl (80-97); PLATELET COUNT 227 10^3/uL (150-450); RED BLOOD COUNT 4.78 10^6/uL (4.35-5.55); RED CELL DISTRIBUTION WIDTH 14.2 % (11.5-14.0); TOTAL CELLS COUNTED % (AUTO) 100 %; WHITE BLOOD COUNT 15.4 10^3/uL (4.0-10.5)
[2020-02-13 06:32] LABS: ANION GAP 9 (5-19); BLOOD UREA NITROGEN 29 mg/dL (7-20); CALCIUM 8.2 mg/dL (8.4-10.2); CARBON DIOXIDE 26 mmol/L (22-30); CHLORIDE 99 mmol/L (98-107); GLUCOSE 99 mg/dL (75-110); POTASSIUM 4.8 mmol/L (3.6-5.0)
[2020-02-13] MEDS: ASPIRIN 81 MG TABLET, ENT COATED PO SCH (09:30)
[2020-02-13] MEDS: AZITHROMYCIN 250 MG TABLET PO SCH (09:30)
[2020-02-13] MEDS: ENOXAPARIN SODIUM INJ 40 MG/0.4 ML DISP.SYRIN SUBCUT SCH (09:31)
[2020-02-13] MEDS: CEFTRIAXONE 1 GM/D5W RTU 1 GM/50 ML RTUPB IV SCH (09:31)
[2020-02-13] MEDS: NORMAL SALINE 1000 ML 1,000 ML IV PRN (11:50)
--- NOTE | 2020-02-13 14:36 | EKG REPORT ---
SEVERITY:- ABNORMAL ECG - WIDE COMPLEX TACHYCARDIA NONSPECIFIC INTRAVENTRICULAR CONDUCTION DELAY : Confirmed by: Brittny Alicea MD 13-Feb-2020 14:34:42
[2020-02-13] MEDS ORDERED: METOPROLOL TARTRATE PF/INJ 5 MG/5 ML SDV IV PRN (14:40)
--- NOTE | 2020-02-13 15:02 | PDOC PROGRESS REPORT ---
Subjective Progress Note for:: 02/13/20 Subjective:: Patient was doing well this morning upon my encounter. However this afternoon, patient had an episode where he became tachycardic into the 170s. Patient broke out of this spontaneously after about 20 minutes before we could administer any medication. Patient also became more hypoxic into the 60s on 6 L nasal cannula and had to be placed on a nonrebreather. Patient initially denied feeling short of breath during the episode but later on started to notice some shortness of breath. Reason For Visit: PNEUNMONIA,PLUM FIBROSIS,RULE OUT COVID Physical Exam Vital Signs: Temp Pulse Resp BP Pulse Ox 98.7 F 172 H 18 101/57 L 91 L 02/13/20 13:00 02/13/20 13:24 02/13/20 13:00 02/13/20 13:00 02/13/20 13:09 Intake & Output 02/12/20 02/13/20 02/14/20 06:59 06:59 06:59 Intake Total 1110 170 Output Total 530 100 Balance 580 70 Weight 76.8 kg General appearance: PRESENT: no acute distress, cooperative Neck exam: ABSENT: JVD Respiratory exam: PRESENT: crackles - Diffusely, unlabored. ABSENT: tachypnea, wheezes Cardiovascular exam: PRESENT: RRR, +S1, +S2. ABSENT: tachycardia GI/Abdominal exam: PRESENT: normal bowel sounds, soft. ABSENT: rebound, rigid, tenderness Extremities exam: ABSENT: pedal edema Neurological exam: PRESENT: alert, awake, oriented to person, oriented to place, oriented to time Results Laboratory Results: 02/13/20 04:57 02/13/20 04:57 02/12/20 02/13/20 02/13/20 15:10 04:57 04:57 WBC 15.4 H RBC 4.78 Hgb 14.9 Hct 43.8 MCV 92 MCH 31.1 MCHC 33.9 RDW 14.2 H Plt Count 227 Seg Neutrophils % 70.0 Sodium 133.5 L Potassium 4.8 Chloride 99 Carbon Dioxide 26 Anion Gap 9 BUN 29 H Creatinine 1.38 H Est GFR ( Amer) > 60 Glucose 99 Lactic Acid 1.5 Calcium 8.2 L Magnesium 2.2 02/12/20 11:54 Blood Blood Culture (PCR) - Final Staphylococcus Species 02/12/20 02/12/20 10:46 12:00 Troponin I 0.020 NT-Pro-B Natriuret Pep 1720 H Impressions: Chest X-Ray 02/12/20 11:33 IMPRESSION: Pulmonary fibrosis. Cannot exclude a superimposed left lower lobe pneumonia. Assessment and Plan - Diagnosis (1) Acute and chronic respiratory failure with hypoxia Is this a current diagnosis for this admission?: Yes Plan: At baseline patient wears 4 L nasal cannula. Initially on admission, he required BiPAP machine due to hypoxia into the 70s on 4 L but later improved and was satting in the low to mid 90s on 4 L nasal cannula. However since his episode of tachycardia at today, SPO2 dropped to the 60s on 6 L nasal cannula requiring being placed on a nonrebreather. Check ABG on 4 L nasal cannula. If truly low, will try on Ventimask at 50% FiO2 wean as tolerated. I will also send patient for stat CTA of the chest. (2) Left lower lobe pneumonia Qualifiers: Pneumonia type: due to unspecified organism Qualified Code(s): J18.9 - Pneumonia, unspecified organism Is this a current diagnosis for this admission?: Yes Plan: Chest x-ray shows chronic interstitial changes with some increased interstitial opacification in the left lower lung. Potentially could have a pneumonia brewing amidst his chronic pulmonary fibrosis especially given his fever. Influenza negative. 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 Result pending. Ceftriaxone and azithromycin Blood cultures obtained (3) Tachycardia Is this a current diagnosis for this admission?: Yes Plan: Patient had an episode where his heart rate sustained in the 170s for about 20 minutes and broke spontaneously. I reviewed the corn breeder and his tachycardia seem to have started abruptly and looks like he was precipitated by a premature atrial complex and also resolved abruptly. 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 Currently, his tachycardia has resolved we will monitor with IV Lopressor as needed. If episodes should recur, will then get cardiology involved. (4) COPD (chronic obstructive pulmonary disease) Qualifiers: COPD type: emphysema Emphysema type: unspecified Qualified Code(s): J43.9 - Emphysema, unspecified Is this a current diagnosis for this admission?: Yes Plan: Nebs as needed. Not acutely exacerbated. Oxygen supplementation. (5) Pulmonary fibrosis Is this a current diagnosis for this admission?: Yes Plan: Outpatient follow-up with Dr. Sharp - Time Time Spent with patient: Less than 15 minutes
--- NOTE | 2020-02-13 16:14 | RADIOLOGY REPORT (SQ) ---
EXAM DESCRIPTION: CTA CHEST COMPLETED DATE/TIME: 02/13/2020 3:59 pm REASON FOR STUDY: WORSENING HYPOXIA COMPARISON: None. TECHNIQUE: CT scan of the chest performed using helical scanning technique with dynamic intravenous contrast injection. Images reviewed with lung, soft tissue and bone windows. Reconstructed coronal and sagittal MPR images reviewed. Additional 3 dimensional post-processing performed to develop Maximal Intensity Projection images ([place] P). All images stored on PACS. All CT scanners at this facility use dose modulation, iterative reconstruction, and/or weight based d osing when appropriate to reduce radiation dose to as low as reasonably achievable (ALARA). [facility]: Dose Right [facility]: CareDose [facility]: Dose Right [facility]: Teradose 4D [facility]: Huddle CONTRAST TYPE AND DOSE: contrast/concentration: Isovue 350.00 mg/ml; Total Contrast Delivered: 61.0 ml; Total Saline Delivered: 80.0 ml Contrast bolus adequate for pulmonary arteries and aorta. RENAL FUNCTION: BUN 29 creatinine 1.38. RADIATION DOSE: CT Rad equipment meets quality standard of care and radiation dose reduction techniq ues were employed. CTDIvol: 11.3 - 11.8 mGy. DLP: 425 mGy-cm. . LIMITATIONS: None. FINDINGS: LUNGS AND PLEURA: Elevated left hemidiaphragm. Emphysematous changes with chronic fibrosi s. Large bullae in the right lung. A bulla in the left upper lobe with air-fluid level. No pleural effusion. AORTA AND GREAT VESSELS: No aneurysm. Contrast bolus not optimized for the aorta. HEART: No pericardial effusion. No significant coronary artery calcifications. PULMONARY ARTERIES: No emboli visualized in the main pulmonary arteries or the segmental branches. HILAR AND MEDIASTINAL STRUCTURES: No identified masses or abnormal nodes. HARDWARE: None in the chest. UPPER ABDOMEN: No significant findings. Limited exam. THYROID AND OTHER SOFT TISSUES: No masses. No adenopathy. BONES: No acute or significant finding. 3D MIPS: Confirm above findings. OTHER: No other significant finding. IMPRESSION: 1. NORMAL CTA OF THE CHEST. NO PULMONARY EMBOLI. 2. ELEVATED LEFT HEMIDIAPHRAGM. CHRONIC FIBROSIS WITH LARGE BULLAE. A BULLA IN THE LEFT UPPER LOBE HAS AN AIR-FLUID LEVEL WHICH COULD INDICATE SUPERIMPOSED INFECTION. COMMENT: Quality ID # [id number]: Final reports with documentation of one or more dose reduction techniques (e.g., Automated exposure control, adjustment of the mA and/or kV according to patient size, use of iterative reconstruction technique) TECHNICAL DOCUMENTATION: JOB ID: [id number] 2010 [employer]- All Rights Reserved Reading location - IP/workstation name: [email or web address]
[2020-02-13 18:18] LABS: ARTERIAL BLOOD BASE EXCESS 0 mmol/L; ARTERIAL BLOOD H2CO3 0.95 mmol/L (1.05-1.35); ARTERIAL BLOOD HCO3 22.7 mmol/L (20-24); ARTERIAL BLOOD O2 SATURATION 91.9 % (94-98); ARTERIAL BLOOD PCO2 31.7 mmHg (35-45); ARTERIAL BLOOD PH 7.47 (7.35-7.45); ARTERIAL BLOOD PO2 57.4 mmHg (80-100); ARTERIAL BLOOD TOTAL CO2 23.6 mmol/L (23-27)
[2020-02-13 18:34] LABS: ARTERIAL BLOOD FIO2 4L
[2020-02-13] MEDS: ATORVASTATIN CALCIUM 20 MG TABLET PO SCH (21:22)
[2020-02-14 06:28] LABS: ABSOLUTE BASOPHILS # (AUTO) 0.1 10^3/uL (0.0-0.2); ABSOLUTE EOSINOPHILS # (AUTO) 0.1 10^3/uL (0.0-0.6); ABSOLUTE LYMPHOCYTES (AUTO) 2.8 10^3/uL (0.5-4.7); ABSOLUTE MONOCYTES (AUTO) 1.8 10^3/uL (0.1-1.4); ABSOLUTE NEUT (AUTO) 9.7 10^3/uL (1.7-8.2); BASOPHILS % (AUTO) 0.7 % (0-2); EOSINOPHILS % (AUTO) 0.9 % (0-6); HEMATOCRIT 41.6 % (37.9-51.0); LYMPHOCYTES % (AUTO) 19.2 % (13-45); MEAN CORPUSCULAR HGB CONC 33.7 g/dL (32.0-36.0); MEAN CORPUSCULAR VOLUME 92 fl (80-97); MONOCYTES % (AUTO) 12.3 % (3-13); PLATELET COUNT 233 10^3/uL (150-450); RED BLOOD COUNT 4.52 10^6/uL (4.35-5.55); RED CELL DISTRIBUTION WIDTH 14.2 % (11.5-14.0); SEGMENTED NEUTROPHILS % (AUTO) 66.9 % (42-78); TOTAL CELLS COUNTED % (AUTO) 100 %; WHITE BLOOD COUNT 14.4 10^3/uL (4.0-10.5)
[2020-02-14 06:57] LABS: ANION GAP 8 (5-19); BLOOD UREA NITROGEN 23 mg/dL (7-20); CALCIUM 7.7 mg/dL (8.4-10.2); CARBON DIOXIDE 25 mmol/L (22-30); CHLORIDE 100 mmol/L (98-107); GLUCOSE 82 mg/dL (75-110); POTASSIUM 4.6 mmol/L (3.6-5.0)
[2020-02-14] MEDS: ASPIRIN 81 MG TABLET, ENT COATED PO SCH (10:48)
[2020-02-14] MEDS: ENOXAPARIN SODIUM INJ 40 MG/0.4 ML DISP.SYRIN SUBCUT SCH (10:48)
[2020-02-14] MEDS: AZITHROMYCIN 250 MG TABLET PO SCH (10:48)
[2020-02-14] MEDS: CEFTRIAXONE 1 GM/D5W RTU 1 GM/50 ML RTUPB IV SCH (10:49)
--- NOTE | 2020-02-14 13:14 | PDOC PROGRESS REPORT ---
Subjective Progress Note for:: 02/14/20 Subjective:: Patient with consistent coughing during the encounter. Nonproductive. The cough is the thing that bothers him the most. Reason For Visit: PNEUNMONIA,PLUM FIBROSIS,RULE OUT COVID Physical Exam Vital Signs: Temp Pulse Resp BP Pulse Ox 98.6 F 69 16 101/60 93 02/14/20 11:06 02/14/20 11:06 02/14/20 11:06 02/14/20 11:06 02/14/20 11:06 Intake & Output 02/13/20 02/14/20 02/15/20 06:59 06:59 06:59 Intake Total 1110 410 Output Total 530 450 250 Balance 580 -40 -250 Weight 76.8 kg 77.9 kg General appearance: PRESENT: cooperative, mild distress, well-developed Head exam: PRESENT: atraumatic, normocephalic Eye exam: PRESENT: conjunctiva pink. ABSENT: scleral icterus Ear exam: PRESENT: normal external ear exam. ABSENT: bleeding, drainage Respiratory exam: PRESENT: prolonged expiratory phas, rales - Bilaterally. Greater on the left., symmetrical, unlabored. ABSENT: rhonchi, tachypnea, wheezes Cardiovascular exam: PRESENT: RRR, +S1, +S2 GI/Abdominal exam: PRESENT: normal bowel sounds, soft. ABSENT: distended, tenderness Rectal exam: PRESENT: deferred Gentrourinary exam: ABSENT: indwelling catheter Extremities exam: PRESENT: full ROM. ABSENT: joint swelling, pedal edema Musculoskeletal exam: PRESENT: ambulatory, full ROM, normal inspection. ABSENT: deformity Neurological exam: PRESENT: alert, awake, oriented to person, oriented to place, oriented to time, oriented to situation, CN II-XII grossly intact. ABSENT: altered, motor sensory deficit Psychiatric exam: PRESENT: appropriate affect. ABSENT: agitated, anxious Focused psych exam: ABSENT: delusional, restlessness Skin exam: PRESENT: dry, normal color, warm. ABSENT: rash Results Laboratory Results: 02/14/20 05:45 02/14/20 05:45 02/13/20 02/13/20 02/14/20 15:34 16:58 05:45 WBC 14.4 H RBC 4.52 Hgb 14.0 Hct 41.6 MCV 92 MCH 31.0 MCHC 33.7 RDW 14.2 H Plt Count 233 Seg Neutrophils % 66.9 Carbonic Acid Cancelled 0.95 L HCO3/H2CO3 Ratio Cancelled 23:1 ABG pH Cancelled 7.47 H ABG pCO2 Cancelled 31.7 L ABG pO2 Cancelled 57.4 L ABG HCO3 Cancelled 22.7 ABG O2 Saturation Cancelled 91.9 L ABG Base Excess Cancelled 0 FiO2 Cancelled 4L Sodium Potassium Chloride Carbon Dioxide Anion Gap BUN Creatinine Est GFR ( Amer) Glucose Calcium 02/14/20 05:45 WBC RBC Hgb Hct MCV MCH MCHC RDW Plt Count Seg Neutrophils % Carbonic Acid HCO3/H2CO3 Ratio ABG pH ABG pCO2 ABG pO2 ABG HCO3 ABG O2 Saturation ABG Base Excess FiO2 Sodium 132.7 L Potassium 4.6 Chloride 100 Carbon Dioxide 25 Anion Gap 8 BUN 23 H Creatinine 0.91 Est GFR ( Amer) > 60 Glucose 82 Calcium 7.7 L 02/12/20 11:54 Blood Blood Culture (PCR) - Final Staphylococcus Species 02/12/20 02/12/20 10:46 12:00 Troponin I 0.020 NT-Pro-B Natriuret Pep 1720 H Impressions: Chest X-Ray 02/12/20 11:33 IMPRESSION: Pulmonary fibrosis. Cannot exclude a superimposed left lower lobe pneumonia. Chest/Abdomen CTA 02/13/20 00:00 IMPRESSION: 1. NORMAL CTA OF THE CHEST. NO PULMONARY EMBOLI. 2. ELEVATED LEFT HEMIDIAPHRAGM. CHRONIC FIBROSIS WITH LARGE BULLAE. A BULLA IN THE LEFT UPPER LOBE HAS AN AIR-FLUID LEVEL WHICH COULD INDICATE SUPERIMPOSED INFECTION. Assessment and Plan - Diagnosis (1) Acute and chronic respiratory failure with hypoxia Is this a current diagnosis for this admission?: Yes Plan: At baseline patient wears 4 L nasal cannula. Initially on admission, he required BiPAP machine due to hypoxia into the 70s on 4 L but later improved and was satting in the low to mid 90s on 4 L nasal cannula. However since his episode of tachycardia at today, SPO2 dropped to the 60s on 6 L nasal cannula requiring being placed on a nonrebreather. Check ABG on 4 L nasal cannula. If truly low, will try on Ventimask at 50% FiO2 wean as tolerated. I will also send patient for stat CTA of the chest. 02/14/2020 Still requiring oxygen supplementation. We will add a Trelegy inhaler. He is on Spiriva at home. (2) Left lower lobe pneumonia Qualifiers: Pneumonia type: due to unspecified organism Qualified Code(s): J18.9 - Pneumonia, unspecified organism Is this a current diagnosis for this admission?: Yes Plan: Chest x-ray shows chronic interstitial changes with some increased interstitial opacification in the left lower lung. Potentially could have a pneumonia brewing amidst his chronic pulmonary fibrosis especially given his fever. Influenza negative. 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 Result pending. Ceftriaxone and azithromycin Blood cultures obtained 02/14/2020 Continue current antibiotic therapy. Covid 19 pending (3) Tachycardia Is this a current diagnosis for this admission?: Yes Plan: Patient had an episode where his heart rate sustained in the 170s for about 20 minutes and broke spontaneously. I reviewed the security monitor and his tachycardia seem to have started abruptly and looks like he was precipitated by a premature atrial complex and also resolved abruptly. 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 Currently, his tachycardia has resolved we will monitor with IV Lopressor as needed. If episodes should recur, will then get cardiology involved. 02/14/2020 Currently resolved. Continue telemetry monitoring. (4) COPD (chronic obstructive pulmonary disease) Qualifiers: COPD type: emphysema Emphysema type: unspecified Qualified Code(s): J43.9 - Emphysema, unspecified Is this a current diagnosis for this admission?: Yes Plan: Nebs as needed. Not acutely exacerbated. Oxygen supplementation. 02/14/2020 Currently on as needed nebulizers. He was on Spiriva at home. Consider adding inhaler therapy. (5) Pulmonary fibrosis Is this a current diagnosis for this admission?: Yes Plan: Outpatient follow-up with Dr. Sharp 02/14/2020 No specific treatment currently. Continue to treat other respiratory issues. - Time Time Spent with patient: 15-24 minutes Medications reviewed and adjusted accordingly: Yes
[2020-02-14] MEDS: NORMAL SALINE 1000 ML 1,000 ML IV PRN (13:33)
[2020-02-14] MEDS: IPRATROPIUM/ALBUTEROL 0.5-2.5 MG/3 ML AMPUL NEB PRN (20:38)
[2020-02-14] MEDS: ATORVASTATIN CALCIUM 20 MG TABLET PO SCH (21:27)
[2020-02-15] MEDS: IPRATROPIUM/ALBUTEROL 0.5-2.5 MG/3 ML AMPUL NEB PRN ×3 (09:15→23:51)
[2020-02-15] MEDS: AZITHROMYCIN 250 MG TABLET PO SCH (09:54)
[2020-02-15] MEDS: ENOXAPARIN SODIUM INJ 40 MG/0.4 ML DISP.SYRIN SUBCUT SCH (09:54)
[2020-02-15] MEDS: ASPIRIN 81 MG TABLET, ENT COATED PO SCH (09:54)
[2020-02-15] MEDS: CEFTRIAXONE 1 GM/D5W RTU 1 GM/50 ML RTUPB IV SCH (09:56)
[2020-02-15] MEDS ORDERED: ONDANSETRON HCL INJ/PF 4 MG/2 ML SDV IV PRN (11:00)
[2020-02-15] MEDS ORDERED: GUAIFENESIN/D-METHORPHAN (200-20 MG) SYRUP 10 ML PO PRN (11:55)
--- NOTE | 2020-02-15 12:01 | PDOC PROGRESS REPORT ---
Subjective Progress Note for:: 02/15/20 Subjective:: Still with nonproductive cough. He still requires 4 L nasal cannula oxygen. He is not as wheezy today. Reason For Visit: PNEUNMONIA,PLUM FIBROSIS,RULE OUT COVID Physical Exam Vital Signs: Temp Pulse Resp BP Pulse Ox 97.7 F 63 16 100/49 L 94 02/15/20 07:45 02/15/20 09:18 02/15/20 09:18 02/15/20 07:45 02/15/20 09:18 Intake & Output 02/14/20 02/15/20 02/16/20 06:59 06:59 06:59 Intake Total 410 2850 Output Total 450 1780 Balance -40 1070 Weight 77.9 kg 80.2 kg General appearance: PRESENT: no acute distress, cooperative, well-developed Head exam: PRESENT: atraumatic, normocephalic Ear exam: PRESENT: normal external ear exam. ABSENT: bleeding, drainage Respiratory exam: PRESENT: prolonged expiratory phas, symmetrical, unlabored, wheezes - Expiratory wheezes present but noticeably decreased from yesterday. He did receive a nebulizer treatment approximately 1 hour ago.. ABSENT: rales, rhonchi, tachypnea Cardiovascular exam: PRESENT: RRR, +S1, +S2 GI/Abdominal exam: PRESENT: normal bowel sounds, soft. ABSENT: distended, guarding, mass, tenderness Rectal exam: PRESENT: deferred Gentrourinary exam: ABSENT: indwelling catheter Extremities exam: ABSENT: joint swelling, pedal edema Musculoskeletal exam: PRESENT: ambulatory, full ROM, normal inspection. ABSENT: deformity Neurological exam: PRESENT: alert, awake, oriented to person, oriented to place, oriented to time, oriented to situation, CN II-XII grossly intact Psychiatric exam: PRESENT: appropriate affect. ABSENT: agitated, anxious Focused psych exam: ABSENT: delusional, paranoid, restlessness Skin exam: PRESENT: dry, normal color, warm. ABSENT: rash Results Laboratory Results: 02/14/20 05:45 02/14/20 05:45 02/12/20 11:54 Blood Blood Culture (PCR) - Final Staphylococcus Species 02/12/20 02/12/20 10:46 12:00 Troponin I 0.020 NT-Pro-B Natriuret Pep 1720 H Impressions: Chest X-Ray 02/12/20 11:33 IMPRESSION: Pulmonary fibrosis. Cannot exclude a superimposed left lower lobe pneumonia. Chest/Abdomen CTA 02/13/20 00:00 IMPRESSION: 1. NORMAL CTA OF THE CHEST. NO PULMONARY EMBOLI. 2. ELEVATED LEFT HEMIDIAPHRAGM. CHRONIC FIBROSIS WITH LARGE BULLAE. A BULLA IN THE LEFT UPPER LOBE HAS AN AIR-FLUID LEVEL WHICH COULD INDICATE SUPERIMPOSED INFECTION. Assessment and Plan - Diagnosis (1) Acute and chronic respiratory failure with hypoxia Is this a current diagnosis for this admission?: Yes Plan: At baseline patient wears 4 L nasal cannula. Initially on admission, he required BiPAP machine due to hypoxia into the 70s on 4 L but later improved and was satting in the low to mid 90s on 4 L nasal cannula. However since his episode of tachycardia at today, SPO2 dropped to the 60s on 6 L nasal cannula requiring being placed on a nonrebreather. Check ABG on 4 L nasal cannula. If truly low, will try on Ventimask at 50% FiO2 wean as tolerated. I will also send patient for stat CTA of the chest. 02/14/2020 Still requiring oxygen supplementation. We will add a Trelegy inhaler. He is on Spiriva at home. 02/15/2020 The patient is less wheezy but still with a chronic dry cough. I will add antitussive medication to see if this helps. He has not been coughing up any sputum. He is on 4 L nasal cannula which in fact is his baseline oxygen at home. (2) Left lower lobe pneumonia Qualifiers: Pneumonia type: due to unspecified organism Qualified Code(s): J18.9 - Pne umonia, unspecified organism Is this a current diagnosis for this admission?: Yes Plan: Chest x-ray shows chronic interstitial changes with some increased interstitial opacification in the left lower lung. Potentially could have a pneumonia b rewing amidst his chronic pulmonary fibrosis especially given his fever. Influenza negative. 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 Result pending. Ceftriaxone and azithromycin Blood cultures obtained 02/14/2020 Continue current antibiotic therapy. Covid 19 pending 02/15/2020 Currently on azithromycin and Rocephin for community-acquired pneumonia. With his underlying multiple pulmonary comorbidities he is being tested for Covid 19 virus. (3) COPD (chronic obstructive pulmonary disease) Qualifiers: COPD type: emphysema Emphysema type: unspecified Qualified Code(s): J43.9 - Emphysema, unspecified Is this a current diagnosis for this admission?: Yes Plan: Nebs as needed. Not acutely exacerbated. Oxygen supplementation. 02/14/2020 Currently on as needed nebulizers. He was on Spiriva at home. Consider adding inhaler therapy. 02/15/2020 I have added a Trelegy inhaler. We will continue to monitor his progress. (4) Pulmonary fibrosis Is this a current diagnosis for this admission?: Yes Plan: Outpatient follow-up with Dr. Sharp 02/14/2020 No specific treatment currently. Continue to treat other respiratory issues. 02/15/2020 Continue supportive measures (5) Tachycardia Is this a current diagnosis for this admission?: Yes Plan: Patient had an episode where his heart rate sustained in the 170s for about 20 minutes and broke spontaneously. I reviewed the cane weigher helper and his tachycardia seem to have started abruptly and looks like he was precipitated by a premature atrial complex and also resolved abruptly. 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 Currently, his tachycardia has resolved we will monitor with IV Lopressor as needed. If episodes should recur, will then get cardiology involved. 02/14/2020 Currently resolved. Continue telemetry monitoring. 02/15/2020 No recurrence at this point. Continue to monitor.
[2020-02-15] MEDS: FLUTICASONE/UMECLIDIN/VILANTER 100-62.5-25 MCG/DOSE IH SCH (17:57)
[2020-02-15] MEDS: ATORVASTATIN CALCIUM 20 MG TABLET PO SCH (21:09)
[2020-02-16 07:29] LABS: HEMATOCRIT 41.2 % (37.9-51.0); HEMOGLOBIN 14.3 g/dL (13.5-17.0); MEAN CORPUSCULAR HEMOGLOBIN 31.7 pg (27.0-33.4); MEAN CORPUSCULAR HGB CONC 34.8 g/dL (32.0-36.0); MEAN CORPUSCULAR VOLUME 91 fl (80-97); RED BLOOD COUNT 4.53 10^6/uL (4.35-5.55); WHITE BLOOD COUNT 11.4 10^3/uL (4.0-10.5)
[2020-02-16 07:30] LABS: ABSOLUTE BASOPHILS # (AUTO) 0.1 10^3/uL (0.0-0.2); ABSOLUTE EOSINOPHILS # (AUTO) 0.3 10^3/uL (0.0-0.6); ABSOLUTE LYMPHOCYTES (AUTO) 2.5 10^3/uL (0.5-4.7); ABSOLUTE MONOCYTES (AUTO) 1.4 10^3/uL (0.1-1.4); ABSOLUTE NEUT (AUTO) 7.2 10^3/uL (1.7-8.2); BASOPHILS % (AUTO) 0.7 % (0-2); EOSINOPHILS % (AUTO) 2.3 % (0-6); LYMPHOCYTES % (AUTO) 21.7 % (13-45); MONOCYTES % (AUTO) 12.2 % (3-13); PLATELET COUNT 247 10^3/uL (150-450); SEGMENTED NEUTROPHILS % (AUTO) 63.1 % (42-78); TOTAL CELLS COUNTED % (AUTO) 100 %
[2020-02-16 07:42] LABS: ANION GAP 8 (5-19); BLOOD UREA NITROGEN 20 mg/dL (7-20); CARBON DIOXIDE 26 mmol/L (22-30); CHLORIDE 100 mmol/L (98-107); GLUCOSE 83 mg/dL (75-110); POTASSIUM 4.6 mmol/L (3.6-5.0)
[2020-02-16] MEDS: IPRATROPIUM/ALBUTEROL 0.5-2.5 MG/3 ML AMPUL NEB PRN ×2 (08:14→19:55)
[2020-02-16] MEDS: AZITHROMYCIN 250 MG TABLET PO SCH (09:12)
[2020-02-16] MEDS: ASPIRIN 81 MG TABLET, ENT COATED PO SCH (09:12)
[2020-02-16] MEDS: CEFTRIAXONE 1 GM/D5W RTU 1 GM/50 ML RTUPB IV SCH (09:12)
[2020-02-16] MEDS: ENOXAPARIN SODIUM INJ 40 MG/0.4 ML DISP.SYRIN SUBCUT SCH (09:12)
[2020-02-16] MEDS: FLUTICASONE/UMECLIDIN/VILANTER 100-62.5-25 MCG/DOSE IH SCH (09:12)
--- NOTE | 2020-02-16 15:30 | PDOC PROGRESS REPORT ---
Subjective Progress Note for:: 02/16/20 Subjective:: Patient continues to improve slowly. He states that he benefits most from the nebulizer machine. With his pulmonary fibrosis and alpha-1 antitrypsin deficiency with chronic oxygen dependence I feel he would benefit from a nebulizer machine at home. Reason For Visit: PNEUNMONIA,PLUM FIBROSIS,RULE OUT COVID Physical Exam Vital Signs: Temp Pulse Resp BP Pulse Ox 98.5 F 83 18 99/57 L 95 02/16/20 07:27 02/16/20 14:00 02/16/20 08:14 02/16/20 07:27 02/16/20 08:14 Intake & Output 02/15/20 02/16/20 02/17/20 06:59 06:59 06:59 Intake Total 2850 1702 290 Output Total 1780 1895 850 Balance 8880 193 -990 Weight 80.2 kg 79 kg General appearance: PRESENT: cooperative, mild distress, well-developed Head exam: PRESENT: atraumatic, normocephalic Ear exam: PRESENT: normal external ear exam. ABSENT: bleeding, drainage Mouth exam: PRESENT: moist, tongue midline Respiratory exam: PRESENT: rales - Diffuse faint rales, symmetrical, unlabored. ABSENT: accessory muscle use, prolonged expiratory phas, rhonchi, tachypnea, wheezes Cardiovascular exam: PRESENT: RRR, +S1, +S2 GI/Abdominal exam: PRESENT: normal bowel sounds, soft. ABSENT: distended, guarding, mass, tenderness Rectal exam: PRESENT: deferred Gentrourinary exam: ABSENT: indwelling catheter Extremities exam: ABSENT: joint swelling, pedal edema Musculoskeletal exam: PRESENT: ambulatory, full ROM, normal inspection. ABSENT: deformity Neurological exam: PRESENT: alert, awake, oriented to person, oriented to place, oriented to time, oriented to situation, CN II-XII grossly intact. ABSENT: altered Psychiatric exam: PRESENT: appropriate affect. ABSENT: agitated, anxious Focused psych exam: ABSENT: delusional, restlessness Skin exam: PRESENT: dry, normal color, warm. ABSENT: rash Results Laboratory Results: 02/16/20 06:35 02/16/20 06:35 02/16/20 02/16/20 06:35 06:35 WBC 11.4 H RBC 4.53 Hgb 14.3 Hct 41.2 MCV 91 MCH 31.7 MCHC 34.8 RDW 14.0 Plt Count 247 Seg Neutrophils % 63.1 Sodium 134.4 L Potassium 4.6 Chloride 100 Carbon Dioxide 26 Anion Gap 8 BUN 20 Creatinine 0.82 Est GFR ( Amer) > 60 Glucose 83 Calcium 8.0 L Magnesium 2.4 H 02/12/20 11:54 Blood Blood Culture (PCR) - Final Staphylococcus Species 02/12/20 02/12/20 10:46 12:00 Troponin I 0.020 NT-Pro-B Natriuret Pep 1720 H Impressions: Chest X-Ray 02/12/20 11:33 IMPRESSION: Pulmonary fibrosis. Cannot exclude a superimposed left lower lobe pneumonia. Chest/Abdomen CTA 02/13/20 00:00 IMPRESSION: 1. NORMAL CTA OF THE CHEST. NO PULMONARY EMBOLI. 2. ELEVATED LEFT HEMIDIAPHRAGM. CHRONIC FIBROSIS WITH LARGE BULLAE. A BULLA IN THE LEFT UPPER LOBE HAS AN AIR-FLUID LEVEL WHICH COULD INDICATE SUPERIMPOSED INFECTION. Assessment and Plan - Diagnosis (1) Acute and chronic respiratory failure with hypoxia Is this a current diagnosis for this admission?: Yes Plan: At baseline patient wears 4 L nasal cannula. Initially on admission, he requir ed BiPAP machine due to hypoxia into the 70s on 4 L but later improved and was satting in the low to mid 90s on 4 L nasal cannula. However since his episode of tachycardia at today, SPO2 dropped to the 60s on 6 L nasal cannula requiring being placed on a nonrebreather. Check ABG on 4 L nasal cannula. If truly low, will try on Ventimask at 50% FiO2 wean as tolerated. I will also send patient for stat CTA of the chest. 02/14/2020 Still requiring oxygen supplementation. We will add a Trelegy inhaler. He is on Spiriva at home. 02/15/2020 The patient is less wheezy but still with a chronic dry cough. I will add antitussive medication to see if this helps. He has not been coughing up any sputum. He is on 4 L nasal cannula which in fact is his baseline oxygen at home. 02/16/2020 Still with rales but the patient does have underlying pulmonary fibrosis. He remains on his baseline 4 L nasal cannula oxygen. He still has a pretty significant cough. We will continue current regimen as the patient is getting closer to his baseline. (2) Left lower lobe pneumonia Qualifiers: Pneumonia type: due to unspecified organism Qualified Code(s): J18.9 - Pneumonia, unspecified organism Is this a current diagnosis for this admission?: Yes Plan: Chest x-ray shows chronic interstitial changes with some increased interstitial opacification in the left lower lung. Potentially could have a pneumonia brewing amidst his chronic pulmonary fibrosis especially given his fever. Influenza negative. 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 Result pending. Ceftriaxone and azithromycin Blood cultures obtained 02/14/2020 Continue current antibiotic therapy. Covid 19 pending 02/15/2020 Currently on azithromycin and Rocephin for community-acquired pneumonia. With his underlying multiple pulmonary comorbidities he is being tested for Covid 19 virus. 02/16/2020 Continue current antibiotics. Covid-19 results still not available. (3) COPD (chronic obstructive pulmonary disease) Qualifiers: COPD type: emphysema Emphysema type: unspecified Qualified Code(s): J43.9 - Emphysema, unspecified Is this a current diagnosis for this admission?: Yes Plan: Nebs as needed. Not acutely exacerbated. Oxygen supplementation. 02/14/2020 Currently on as needed nebulizers. He was on Spiriva at home. Consider adding inhaler therapy. 02/15/2020 I have added a Trelegy inhaler. We will continue to monitor his progress. 02/16/2020 The patient feels that the inhaler might be helping. He still gets relief with his nebulizer treatments. We will continue to treat aggressively and submit for a nebulizer machine at home. (4) Pulmonary fibrosis Is this a current diagnosis for this admission?: Yes Plan: Outpatient follow-up with Dr. Sharp 02/14/2020 No specific treatment currently. Continue to treat other respiratory issues. 02/15/2020 Continue supportive measures 02/16/2020 The patient has a history of alpha-1 antitrypsin deficiency. He has had this for many years. He reports that he was seen in Dr. Sharp's office. I will reach out to pulmonology for further information. (5) Tachycardia Is this a current diagnosis for this admission?: Yes Plan: Patient had an episode where his heart rate sustained in the 170s for about 20 minutes and broke spontaneously. I reviewed the site monitor and his tachycardia seem to have started abruptly and looks like he was precipitated by a premature atrial complex and also resolved abruptly. 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 Currently, his tachycardia has resolved we will monitor with IV Lopressor as ne eded. If episodes should recur, will then get cardiology involved. 02/14/2020 Currently resolved. Continue telemetry monitoring. 02/15/2020 No recurrence at this point. Continue to monitor. - Time Time Spent with patient: 15-24 minutes Medications reviewed and adjusted accordingly: Yes Anticipated discharge: Home
[2020-02-16] MEDS: ATORVASTATIN CALCIUM 20 MG TABLET PO SCH (21:40)
[2020-02-17] MEDS: IPRATROPIUM/ALBUTEROL 0.5-2.5 MG/3 ML AMPUL NEB PRN (08:16)
[2020-02-17] MEDS: ASPIRIN 81 MG TABLET, ENT COATED PO SCH (10:13)
[2020-02-17] MEDS: AZITHROMYCIN 250 MG TABLET PO SCH (10:13)
[2020-02-17] MEDS: FLUTICASONE/UMECLIDIN/VILANTER 100-62.5-25 MCG/DOSE IH SCH (10:13)
[2020-02-17] MEDS: ENOXAPARIN SODIUM INJ 40 MG/0.4 ML DISP.SYRIN SUBCUT SCH (10:13)
[2020-02-17] MEDS: CEFTRIAXONE 1 GM/D5W RTU 1 GM/50 ML RTUPB IV SCH (10:13)
--- NOTE | 2020-02-17 13:09 | PDOC DISCHARGE SUMMARY ---
Impression - Admit/DC Date/PCP Admission Date/Primary Care Provider: 02/12/20 16:16 Discharge Date: 02/17/20 - Discharge Diagnosis (1) Acute and chronic respiratory failure with hypoxia Is this a current diagnosis for this admission?: Yes (2) Left lower lobe pneumonia Is this a current diagnosis for this admission?: Yes (3) COPD (chronic obstructive pulmonary disease) Is this a current diagnosis for this admission?: Yes (4) Pulmonary fibrosis Is this a current diagnosis for this admission?: Yes (5) Tachycardia Is this a current diagnosis for this admission?: Yes - Additional Information Resuscitation Status: Full Code Discharge Diet: Regular Discharge Activity: Activity As Tolerated Referrals: [facility] [Outside] (PATIENT TO BE FOLLOWED BY HEALTH DEPT. ON SELF QUARANTINE AT HOME. ONCE THE HEALTH DEPT. RELEASES PATIENT THEN PATIENT MAY SCHEDULE A FOLLOW UP APPT. WITH PCP.) DEDRICK NIXON MD [ACTIVE STAFF] - Prescriptions: Ipratropium/Albuterol Sulfate [Duoneb 3 ml Ampul] 3 ml NEB Q6 PRN 30 Days #120 vial.neb PRN Reason: Shortness Of Breath Fluticasone/Umeclidin/Vilanter [Trelegy 100-62.5-25 Mcg Ellipta 14 Dose/Dpi] 1 inh IH DAILY 14 Days #1 inhaler Home Medications: Aspirin [Ecotrin 81 mg EC Tablet] 81 mg PO DAILY tabec 10/10/19 Atorvastatin Calcium [Lipitor 20 mg Tablet] 20 mg PO QHS #30 tablet 10/10/19 Fluticasone/Umeclidin/Vilanter [Trelegy 100-62.5-25 Mcg Ellipta 14 Dose/Dpi] 1 inh IH DAILY 14 Days #1 inhaler 02/17/20 Guaifenesin/D-Methorphan Hb [Robitussin-Dm Syrup 10 ml Udcup] 10 ml PO QIDP PRN syrup 02/17/20 Ipratropium/Albuterol Sulfate [Duoneb 3 ml Ampul] 3 ml NEB Q6 PRN 30 Days #120 vial.neb 02/17/20 History of Present Illiness History of Present Illness: LUAN MOHAMUD is a 74 year old male with a history of Alpha 1 antitrypsn deficiency, COPD and likely pulmonary fibrosis on 4 L nasal cannula, TIA, who presents from Dr. Sharp's office with complaints of shortness of breath. Patient went to Dr. Sharp's office today and was noted to be hypoxic with SPO2 in the 70s on 4 L. Patient was placed on 10 L nasal cannula and transferred to the ER for further evaluation. In the ER, patient was noted to be febrile at 100.6 and given Tylenol. Chest x-ray revealed chronic interstitial changes but with increased interstitial opacities in the left lower lung. Patient relocated from [place] 3 months ago. Has not had any recent travels outside the [facility]. No known exposures to any persons with covid 19. Only known sick contact is his grandchild who he frequently picks up from the daycare. Has interacted with relatives from out of state recently. Patient states that he was started on treatment for acute bronchitis by Dr. Sharp about 2 weeks ago without any significant improvement continues to feel short of breath and experiencing cough. Endorses some chills but did not know he was febrile. Hospital Course Hospital Course: The patient's hospital course was slow but steady. He was able to wean back to his baseline 4 L nasal cannula oxygen. He had marked wheezing and coughing initially but by the third and fourth days that began to improve. His Covid-19 studies are still pending. He does have a history of alpha-1 antitrypsin deficiency and pulmonary fibrosis so he certainly would be high risk if infected with the virus. He has been responding to antibiotic therapy and treatment for his COPD and so I explained to him that whether he tested positive or negative he was still getting better. The only difference would be the length of quarantine time at home. Physical Exam Vital Signs: Temp Pulse Resp BP Pulse Ox 98.5 F 69 18 103/63 95 02/17/20 07:50 02/17/20 08:16 02/17/20 08:16 02/17/20 07:50 02/17/20 08:16 Intake & Output 02/16/20 02/17/20 02/18/20 06:59 06:59 06:59 Intake Total 1702 870 Output Total 1062 5088 Balance -193 -1650 Weight 79 kg 77.5 kg General appearance: PRESENT: no acute distress, cooperative, well-developed Head exam: PRESENT: atraumatic, normocephalic Ear exam: PRESENT: normal external ear exam. ABSENT: bleeding, drainage Respiratory exam: PRESENT: prolonged expiratory phas, rales, symmetrical, unlabored. ABSENT: accessory muscle use, rhonchi, tachypnea, wheezes Cardiovascular exam: PRESENT: RRR, +S1, +S2. ABSENT: diastolic murmur, systolic murmur GI/Abdominal exam: PRESENT: normal bowel sounds, soft, tenderness. ABSENT: distended, guarding Rectal exam: PRESENT: deferred Gentrourinary exam: ABSENT: indwelling catheter Extremities exam: ABSENT: pedal edema Musculoskeletal exam: PRESENT: ambulatory, full ROM, normal inspection. ABSENT: deformity Neurological exam: PRESENT: alert, awake, oriented to person, oriented to place, oriented to time, oriented to situation, CN II-XII grossly intact. ABSENT: altered, motor sensory deficit Psychiatric exam: PRESENT: appropriate affect, normal mood. ABSENT: agitated, anxious Focused psych exam: ABSENT: delusional, paranoid, restlessness Skin exam: PRESENT: dry, normal color, warm. ABSENT: rash Results Laboratory Results: WBC 11.4 10^3/uL (4.0-10.5) H 02/16/20 06:35 RBC 4.53 10^6/uL (4.35-5.55) 02/16/20 06:35 Hgb 14.3 g/dL (13.5-17.0) 02/16/20 06:35 Hct 41.2 % (37.9-51.0) 02/16/20 06:35 MCV 91 fl (80-97) 02/16/20 06:35 MCH 31.7 pg (27.0-33.4) 02/16/20 06:35 MCHC 34.8 g/dL (32.0-36.0) 02/16/20 06:35 RDW 14.0 % (11.5-14.0) 02/16/20 06:35 Plt Count 247 10^3/uL (150-450) 02/16/20 06:35 Lymph % (Auto) 21.7 % (13-45) 02/16/20 06:35 [place] % (Auto) 12.2 % (3-13) 02/16/20 06:35 Eos % (Auto) 2.3 % (0-6) 02/16/20 06:35 Baso % (Auto) 0.7 % (0-2) 02/16/20 06:35 Absolute Neuts (auto) 7.2 10^3/uL (1.7-8.2) 02/16/20 06:35 Absolute Lymphs (auto) 2.5 10^3/uL (0.5-4.7) 02/16/20 06:35 Absolute Monos (auto) 1.4 10^3/uL (0.1-1.4) 02/16/20 06:35 Absolute Eos (auto) 0.3 10^3/uL (0.0-0.6) 02/16/20 06:35 Absolute Basos (auto) 0.1 10^3/uL (0.0-0.2) 02/16/20 06:35 Seg Neutrophils % 63.1 % (42-78) 02/16/20 06:35 PT 15.7 SEC (11.4-15.4) H 02/12/20 10:46 INR 1.24 02/12/20 10:46 Carbonic Acid 0.95 mmol/L (1.05-1.35) L 02/13/20 16:58 HCO3/H2CO3 Ratio 23:1 02/13/20 16:58 ABG pH 7.47 (7.35-7.45) H 02/13/20 16:58 ABG pCO2 31.7 mmHg (35-45) L 02/13/20 16:58 ABG pO2 57.4 mmHg (80-100) L 02/13/20 16:58 ABG HCO3 22.7 mmol/L (20-24) 02/13/20 16:58 ABG Total CO2 23.6 mmol/L (23-27) 02/13/20 16:58 ABG O2 Saturation 91.9 % (94-98) L 02/13/20 16:58 ABG Base Excess 0 mmol/L 02/13/20 16:58 VBG pH 7.42 (7.30-7.42) 02/12/20 11:54 VBG pCO2 38.7 mmHg (35-63) 02/12/20 11:54 VBG HCO3 24.7 mmol/L (20-32) 02/12/20 11:54 VBG Base Excess 0.4 mmol/L 02/12/20 11:54 FiO2 4L 02/13/20 16:58 Sodium 134.4 mmol/L (137-145) L 02/16/20 06:35 Potassium 4.6 mmol/L (3.6-5.0) 02/16/20 06:35 Chloride 100 mmol/L (98-107) 02/16/20 06:35 Carbon Dioxide 26 mmol/L (22-30) 02/16/20 06:35 Anion Gap 8 (5-19) 02/16/20 06:35 BUN 20 mg/dL (7-20) 02/16/20 06:35 Creatinine 0.82 mg/dL (0.52-1.25) 02/16/20 06:35 Est GFR ( Amer) > 60 (>60) 02/16/20 06:35 Est GFR (MDRD) Non-Af > 60 (>60) 02/16/20 06:35 Glucose 83 mg/dL (75-110) 02/16/20 06:35 Lactic Acid 1.5 mmol/L (0.7-2.1) 02/12/20 15:10 Calcium 8.0 mg/dL (8.4-10.2) L 02/16/20 06:35 Magnesium 2.4 mg/dL (1.6-2.3) H 02/16/20 06:35 Total Bilirubin 1.7 mg/dL (0.2-1.3) H 02/12/20 10:46 Direct Bilirubin 0.2 mg/dL (0.0-0.4) 02/12/20 10:46 Neonat Total Bilirubin Not Reportable 02/12/20 10:46 Neonat Direct Bilirubin Not Reportable 02/12/20 10:46 Neonat Indirect Bili Not Reportable 02/12/20 10:46 AST 28 U/L (17-59) 02/12/20 10:46 ALT 21 U/L (<50) 02/12/20 10:46 Alkaline Phosphatase 154 U/L (38-126) H 02/12/20 10:46 Troponin I 0.020 ng/mL 02/12/20 10:46 Total Protein 7.4 g/dL (6.3-8.2) 02/12/20 10:46 Albumin 3.6 g/dL (3.5-5.0) 02/12/20 10:46 NT-Pro-B Natriuret Pep 1720 pg/mL (<450) H 02/12/20 12:00 Urine Color NIGHAT 02/12/20 13:11 Urine Appearance SLIGHTLY-CLOUDY 02/12/20 13:11 Urine pH 5.0 (5.0-9.0) 02/12/20 13:11 Ur Specific [place] 1.029 02/12/20 13:11 Urine Protein 30 mg/dL (NEGATIVE) H 02/12/20 13:11 Urine Glucose (UA) NEGATIVE mg/dL (NEGATIVE) 02/12/20 13:11 Urine Ketones NEGATIVE mg/dL (NEGATIVE) 02/12/20 13:11 Urine Blood NEGATIVE (NEGATIVE) 02/12/20 13:11 Urine Nitrite (Reflex) NEGATIVE (NEGATIVE) 02/12/20 13:11 Urine Bilirubin NEGATIVE (NEGATIVE) 02/12/20 13:11 Urine Urobilinogen 4.0 mg/dL (<2.0) H 02/12/20 13:11 Leukocyte Esterase Rfl NEGATIVE (NEGATIVE) 02/12/20 13:11 Urine RBC (Auto) 0 /HPF 02/12/20 13:11 U Hyaline Cast (Auto) 4 /LPF 02/12/20 13:11 Urine WBC (Reflex) 1 /HPF 02/12/20 13:11 Squamous Epi Cells Auto <1 /HPF 02/12/20 13:11 Urine Mucus (Auto) MANY /LPF 02/12/20 13:11 Urine Ascorbic Acid NEGATIVE (NEGATIVE) 02/12/20 13:11 Influenza A (Rapid) NEGATIVE (NEGATIVE) 02/12/20 12:00 Influenza B (Rapid) NEGATIVE (NEGATIVE) 02/12/20 12:00 02/12/20 02/12/20 10:46 12:00 Troponin I 0.020 NT-Pro-B Natriuret Pep 1720 H Impressions: Chest X-Ray 02/12/20 11:33 IMPRESSION: Pulmonary fibrosis. Cannot exclude a superimposed left lower lobe pneumonia. Chest/Abdomen CTA 02/13/20 00:00 IMPRESSION: 1. NORMAL CTA OF THE CHEST. NO PULMONARY EMBOLI. 2. ELEVATED LEFT HEMIDIAPHRAGM. CHRONIC FIBROSIS WITH LARGE BULLAE. A BULLA IN THE LEFT UPPER LOBE HAS AN AIR-FLUID LEVEL WHICH COULD INDICATE SUPERIMPOSED INFECTION. Plan Health Concerns: Final result of Covid-19 testing. I also discussed the case with pulmonology. Evidently the patient has been worked up and offered treatment for alpha-1 ant itrypsin disease in [place] and [place] and declined both times. The patient's intention is to go back through the surgery and eventually back to [place] so warfarin treatment at this time does not seem reasonable especially if he is stable with his current regimen. Plan of Treatment: I have added a Trelegy inhaler. I told him to use this instead of his Spiriva. In addition because he was getting so much relief with the nebulizer treatments, and in light of the chronic progressive nature of his underlying disease, and I have ordered a nebulizer machine for him and prescribe duo nebs. He will follow-up with pulmonology. Goals: Complete resolution of infection. Time Spent: Greater than 30 Minutes Stroke Is this a Stroke Patient?: No Acute Heart Failure - Is this a Heart Failure Patient?: No
[2020-02-17 13:29] VITALS: BP 84/51
== END 2020-02-17 15:00 | disposition home health service (06) | DRG 193 ==
LOC: ER 11:01 → EH 16:16 → 5 18:26
PROVIDERS: ADMIT Internal Medicine; ATTEND Hospitalist
DX: J18.9 Pneumonia, unspecified organism (principal); J96.21 Acute and chronic respiratory failure with hypoxia; J84.10 Pulmonary fibrosis, unspecified; E88.01 Alpha-1-antitrypsin deficiency; E78.5 Hyperlipidemia, unspecified; J43.9 Emphysema, unspecified; R00.0 Tachycardia, unspecified; Z87.891 Personal history of nicotine dependence; Z99.81 Dependence on supplemental oxygen
CPT/HCPCS: 36415; 36600; 71045; 71275; 80048; 80053; 81001; 82803; 83605; 83735; 83880; 84484; 85025; 85610; 87040; 87077; 87150; 87186; 87635; 87804; 93005; 93010; 94640; 94660; 96365; 96367; 96375; 96376; 99291; J0456; J0696; J1650; J1940; J2060; J3490; J7030; J7620